=== PATIENT | female | born 1975 | race Caucasian/White ===

== ENCOUNTER → 2018-02-23 | Outpatient (CLI) | payer OTHER ==
--- NOTE | 2018-02-23 13:50 | XR ---
EXAMINATION TYPE: XR lumbar spine 2 or 3V DATE OF EXAM: 02/23/2018 CLINICAL HISTORY: Chronic low back pain TECHNIQUE: Frontal and lateral images of the lumbar spine are obtained. COMPARISON: None FINDINGS: There are 5 lumbar type vertebral bodies identified. The lumbar spine shows satisfactory alignment without evidence of acute fracture or dislocation. Vertebral body heights are within normal limits. There is mild to moderate disc space narrowing with mild anterior spurring L1-L2 level. Ther e is mild to moderate disc space narrowing L4-L5 level. There is mild disc space narrowing L5-S1 lev el. Multilevel facet arthropathy is seen most prominent in lower lumbar levels. The overlying soft ti ssue appears unremarkable. IMPRESSION: As above.
--- NOTE | 2018-02-23 13:51 | XR ---
EXAMINATION TYPE: XR shoulder complete LT DATE OF EXAM: 02/23/2018 CLINICAL HISTORY: Chronic shoulder pain. TECHNIQUE: Three views of the left shoulder are obtained. COMPARISON: None. FINDINGS: There is no acute fracture/dislocation evident in the left shoulder. There is mild to mode rate spurring at acromioclavicular joint. Glenohumeral joint is maintained. The visualized ribs are intact and unremarkable. IMPRESSION: There is mild to moderate degenerative changes left acromioclavicular joint.
== END | disposition home or self-care (01) ==
LOC: RADXRMAIN 13:09
PROVIDERS: ATTEND Family Medicine
DX: M48.07 Spinal stenosis, lumbosacral region (principal); M46.96 Unspecified inflammatory spondylopathy, lumbar region; G89.29 Other chronic pain; M25.512 Pain in left shoulder
CPT/HCPCS: 72100

== ENCOUNTER → 2018-10-25 | Outpatient (CLI) | payer OTHER ==
--- NOTE | 2018-10-29 13:56 | MM ---
Reason for exam: screening (asymptomatic). Baseline mammogram. History: Family history of breast cancer in maternal grandmother at age 62. Physical Findings: Nurse did not find any significant physical abnormalities on exam. MG Screening Mammo w CAD Bilateral CC and MLO view(s) were taken. No prior studies available for comparison. There are scattered fibroglandular densities. No discrete abnormality. 3 benign puctate calcifications medial left breast. These results were verbally communicated with the patient and result sheet given to the patient on 10/25/18. ASSESSMENT: Negative, BI-RAD 1 RECOMMENDATION: Routine screening mammogram of both breasts in 1 year.
== END | disposition home or self-care (01) ==
LOC: RADMAMWWP 07:13
PROVIDERS: ATTEND Family Medicine
DX: Z12.31 Encounter for screening mammogram for malignant neoplasm of breast (principal)
CPT/HCPCS: 77067

== ENCOUNTER → 2020-06-06 | Outpatient (CLI) | payer OTHER ==
--- NOTE | 2020-06-06 15:56 | US ---
EXAMINATION TYPE: US pelvis complete transvag DATE OF EXAM: 06/06/2020 COMPARISON: NONE CLINICAL HISTORY: N92.0 Excessive / frequent menstruation. Difficult exam due to patient body habitus TECHNIQUE: . Transabdominal sonographic images of the pelvis were acquired. Transvaginal sonographi c images were medically necessary to better assess the following anatomy: Uterus and ovaries Date of LMP: 2-3 weeks ago EXAM MEASUREMENTS: Uterus: 9.5 x 5.4 x 6.5 cm Endometrial Stripe: 0.6 cm Right Ovary: 2.4 x 1.7 x 1.0 cm Left Ovary: Not visualized 1. Uterus: Anteverted Heterogeneous 2. Endometrium: wnl 3. Right Ovary: wnl 4. Left Ovary: Not visualized 5. Bilateral Adnexa: wnl 6. Posterior cul-de-sac: wnl IMPRESSION: 1. Uterine myometrium heterogeneous which is nonspecific. No discrete fibroid change.
== END | disposition home or self-care (01) ==
LOC: RADUSWWP 15:16
PROVIDERS: ATTEND Family Medicine
DX: N92.0 Excessive and frequent menstruation with regular cycle (principal)
CPT/HCPCS: 76830; 76856

== ENCOUNTER 2021-06-25 08:37 | Day surgery (SDC) | payer OTHER ==
[2021-06-20 15:57] VITALS: BMI 45.1
[2021-06-25] MEDS ORDERED: LACTATED RINGERS 1,000 ML IV SCH (09:21)
[2021-06-25] MEDS ORDERED: LIDOCAINE 1% (10MG/ML) FOR IV START INTRADERMA PRN (09:21)
[2021-06-25 09:36] VITALS: RESP 16; TEMP 97
[2021-06-25] MEDS ORDERED: LIDOCAINE 1% INJ 10MG/ML (20 ML MDV) ONE (10:39)
[2021-06-25] MEDS ORDERED: PROPOFOL 10 MG/ML 20 ML VIAL IV ONE (10:39)
--- NOTE | 2021-06-25 11:09 | P.PCN ---
Date of Procedure: 06/25/21 Procedure(s) Performed: BRIEF HISTORY: Patient is a 46-year-old pleasant female scheduled for an elective colonoscopy as a part of screening for colon cancer and family history of colon cancer diagnosed in her mother at age 42. PROCEDURE PERFORMED: Colonoscopy. PREOPERATIVE DIAGNOSIS: Screening for colon cancer and family history of colon cancer. IV sedation per Anesthesia. PROCEDURE: After informed consent was obtained, the patient, was brought into the endoscopy unit. IV sedation was administered by Anesthesia under continuous monitoring. Digital rectal examination was normal. Initially the Olympus CF-160 flexible video colonoscope was then inserted in the rectum, gradually advanced into the cecum without any difficulty. Careful examination was performed as the scope was gradually being withdrawn. Ileocecal valve and the appendiceal orifice were visualized and appeared normal. Prep was e fair. Mucosa of the cecum, ascending colon, transverse colon, descending colon, sigmoid colon, and rectum appeared normal. Retroflexion was performed in the rectum and no lesions were seen. The patient tolerated the procedure well. IMPRESSION: Normal-appearing colon from rectum to cecum with no evidence of colitis or colorectal neoplasia . RECOMMENDATIONS: Findings of this examination were discussed with the patient as well as her family. She was advised to have a repeat screening colonoscopy every 5 years because of the family history of colon cancer.
[2021-06-25 11:42] VITALS: BP 127/77; PULSE 87
== END 2021-06-25 12:20 | disposition home or self-care (01) ==
LOC: ORWHC2ENDO 08:37
PROVIDERS: ATTEND Internal Medicine Gastroenterology
DX: Z12.11 Encounter for screening for malignant neoplasm of colon (principal); Z80.0 Family history of malignant neoplasm of digestive organs; I10 Essential (primary) hypertension; K21.9 Gastro-esophageal reflux disease without esophagitis; E78.5 Hyperlipidemia, unspecified; E07.9 Disorder of thyroid, unspecified; F32.9 Major depressive disorder, single episode, unspecified; F41.9 Anxiety disorder, unspecified; F41.0 Panic disorder [episodic paroxysmal anxiety]; Z87.891 Personal history of nicotine dependence; Z79.1 Long term (current) use of non-steroidal anti-inflammatories (NSAID); Z79.890 Hormone replacement therapy; Z79.899 Other long term (current) drug therapy
CPT/HCPCS: 81025; G0105; J2001; J2704; 45378

== ENCOUNTER → 2022-01-19 | Outpatient (CLI) | payer OTHER ==
[2022-01-19 14:07] VITALS: BP 153/89; PULSE 114; RESP 16; TEMP 98.4
[2022-01-19 23:15] LABS: HCT 41.6 % (37.2-46.3); HGB 12.7 g/dL (12.0-15.0); MCHC 30.5 g/dL (32.0-37.0); MCV 82.1 fL (80.0-97.0); Mean Platelet Volume 10.8 fL (9.5-12.2); NRBC Per 100 WBC 0 /100 WBCS (0.0-0.0); Platelet Count 443 X 10*3/uL (140-440); RBC 5.07 X 10*6/uL (4.10-5.20); RDW 16.6 % (11.5-14.5); WBC 5.85 X 10*3/uL (4.50-10.00)
[2022-01-19 23:44] LABS: ALT 49 U/L (8-44); AST 32 U/L (13-35); African American GFR (CKD) 105.2 (60.0-200.0); Albumin 4.8 g/dL (3.8-4.9); Albumin/Globulin Ratio 1.79 (1.60-3.17); Alkaline Phosphatase 135 U/L (41-126); BUN/Creat Ratio 33.98 Ratio (12.00-20.00); Blood Urea Nitrogen 26.3 mg/dL (9.0-27.0); Carbon Dioxide 24.8 mmol/L (20.0-27.5); Chloride 98 mmol/L (96-109); Globulin 2.7 g/dL (1.6-3.3); Glucose 105 mg/dL (70-110); Non-African American GFR(CKD) 90.7 (60.0-200.0); Potassium 4.6 mmol/L (3.5-5.5); Sodium 138 mmol/L (135-145); Total Bilirubin <0.15 mg/dL (0.30-1.20); Total Protein 7.4 g/dL (6.2-8.2)
== END | disposition home or self-care (01) ==
LOC: BARWHC3 13:41
PROVIDERS: ATTEND Surgery
DX: E66.01 Morbid (severe) obesity due to excess calories (principal); E55.9 Vitamin D deficiency, unspecified
CPT/HCPCS: 84425; 80053; 82607; 82746; 85027; 82306; 83036; 93005; G0463; 99203

== ENCOUNTER → 2022-02-09 | Day surgery (SDC) | payer OTHER ==
[~2022-02-09] MED LIST: LACTATED RINGERS 1,000 ML BAG IV ONE; LIDOCAINE 2% INJ 20 MG/ML (2 ML VIAL) ONE; PROPOFOL 10 MG/ML 20 ML VIAL IV ONE
--- NOTE | 2022-02-09 15:08 | P.GSHP ---
History of Present Illness H&P Date: 02/09/22 Chief Complaint: GERD This is a 47-year-old female with of GERD. Patient presents today for EGD. Past Medical History Past Medical History: Diabetes Mellitus, Hypertension, Thyroid Disorder History of Any Multi-Drug Resistant Organisms: None Reported Past Surgical History: Section, Tonsillectomy Past Anesthesia/Blood Transfusion Reactions: No Reported Reaction Past Psychological History: ADD/ADHD, Depression, Panic Disorder Additional Psychological History / Comment(s): Hx. of panic attacks Smoking Status: Former smoker Past Alcohol Use History: None Reported Additional Past Alcohol Use History / Comment(s): Quit in 2002 Past Drug Use History: None Reported - Past Family History Mother Family Medical History: Cancer Additional Family Medical History / Comment(s): ovarian, uterine Father Family Medical History: CVA/TIA, Diabetes Mellitus, Hypertension Medications and Allergies Home Medications Medication Instructions Recorded Confirmed Type Levothyroxine Sodium [Synthroid] 125 mcg PO QAM 08/27/14 02/05/22 History buPROPion [Wellbutrin] 100 mg PO BID 08/27/14 02/05/22 History Chlorthalidone [Hygroton] 25 mg PO QAM 06/20/21 02/05/22 History Meloxicam 15 mg PO DAILY PRN 06/20/21 02/05/22 History Rosuvastatin Calcium [Crestor] 20 mg PO HS 06/20/21 02/05/22 History Sertraline [Zoloft] 50 mg PO QAM 06/20/21 02/05/22 History tiZANidine [Zanaflex] 4 mg PO Q8HR PRN 06/20/21 02/05/22 History Cholecalciferol [Vitamin D3 (25 100 mcg PO DAILY 02/05/22 02/05/22 History Mcg = 1000 Iu)] metFORMIN HCL 50 mg PO AC-SUPPER 02/05/22 02/05/22 History Allergies Allergy/AdvReac Type Severity Reaction Status Date / Time No Known Allergies Allergy Verified 02/05/22 11:55 Surgical - Exam - General well developed, well nourished, no distress - Eyes PERRL - ENT normal pinna - Neck no masses - Respiratory normal expansion - Cardiovascular Rhythm: regular - Abdomen Abdomen: soft, non tender Assessment and Plan Assessment: GERD. We'll perform EGD.
--- NOTE | 2022-02-09 15:10 | P.OP ---
Date of Procedure: 02/09/22 Preoperative Diagnosis: GERD Postoperative Diagnosis: Antral gastritis Sliding hiatal hernia Esophagitis Procedure(s) Performed: EGD Anesthesia: MAC Surgeon: Trevor Garcia Pathology: other (Antrum) Condition: stable Disposition: PACU Description of Procedure: Patient's placed on the endoscopy table in the lateral position where she received IV sedation. The gastroscope placed oropharynx passed in the esophagus and the stomach. Scope was then placed through the pylorus. The first and second portion of the duodenum appeared normal. Scope was then brought back the antrum this. Mildly inflamed. A biopsies performed. Scope was unretroflexed and remainder of the stomach appeared normal. GE junction was at 38 cm. The distal esophagus was mildly inflamed. There was a small sliding hiatal hernia. The distal esophagus biopsy. The proximal esophagus appeared normal. Scope withdrawn for patient.
== END ==
LOC: ORWHC2ENDO 08:40
PROVIDERS: ATTEND Surgery
DX: K21.9 Gastro-esophageal reflux disease without esophagitis (principal); E07.9 Disorder of thyroid, unspecified; E11.9 Type 2 diabetes mellitus without complications; I10 Essential (primary) hypertension; K21.00 Gastro-esophageal reflux disease with esophagitis, without bleeding; K29.70 Gastritis, unspecified, without bleeding; K44.9 Diaphragmatic hernia without obstruction or gangrene; Z82.49 Family history of ischemic heart disease and other diseases of the circulatory system; Z83.3 Family history of diabetes mellitus; Z87.891 Personal history of nicotine dependence; Z80.9 Family history of malignant neoplasm, unspecified; F90.9 Attention-deficit hyperactivity disorder, unspecified type
CPT/HCPCS: 43239; 81025; 88305; J2704; J2001

== ENCOUNTER → 2022-02-16 | Outpatient (CLI) | payer OTHER ==
[2022-02-16 14:23] VITALS: BP 122/81; PULSE 101; TEMP 98.1; BMI 44.8
--- NOTE | 2022-02-16 14:54 | P.HPBAR ---
Bariatric H&P - History & Physicial H&P Date: 02/16/22 History & Physicial: Visit/CC: PRE-SURGICAL VISIT Patient initial contact: Initial weight: 130.181 kg Initial weight in pounds: 287.00 Height: 5 ft 6.5 in Initial BMI: 45.6 Last weight: Current weight: 127.913 kg Current weight in pounds: 282.00 Current BMI: 44.8 [place] body weight (based on NIH guidelines): 60.101 kg Excess body weight loss: 3.2% The patient is a 47 year-old F who presents for Bariatric Assessment.patient rents today for presurgical consultation. She underwent recent EGD. She's had some mild gastritis. Her BMI is 45. Past Medical History Past Medical History: Diabetes Mellitus, Hypertension, Thyroid Disorder History of Any Multi-Drug Resistant Organisms: None Reported Past Surgical History: Section, Tonsillectomy Past Anesthesia/Blood Transfusion Reactions: No Reported Reaction Past Psychological History: ADD/ADHD, Depression, Panic Disorder Additional Psychological History / Comment(s): Hx. of panic attacks Smoking Status: Former smoker Past Alcohol Use History: None Reported Additional Past Alcohol Use History / Comment(s): Quit in 2002 Past Drug Use History: None Reported - Past Family History Mother Family Medical History: Cancer Additional Family Medical History / Comment(s): ovarian, uterine Father Family Medical History: CVA/TIA, Diabetes Mellitus, Hypertension Surgical - Exam Vital Signs Temp Pulse BP 98.1 F 101 H 122/81 02/16/22 14:17 02/16/22 14:17 02/16/22 14:17 - General well developed, well nourished, no distress - Eyes PERRL - ENT normal pinna, normal nares - Neck no masses - Respiratory normal expansion - Cardiovascular Rhythm: regular - Abdomen Abdomen: soft, non tender Bariatric Assessment & Plan Plan: morbid obesity. Patient is doing well. She will follow-up in 8 weeks. Bariatric Checklist Checklist: Plan: Checklist: EGD: 1. Hiatal hernia: 2. H. Pylori: HgbA1c: Vitamin D: Smoking: Former smoker Primary care physician referral: [facility] Psychiatry clearance: Cardiology clearance: Sleep study: Diet journal: VTE risk score: VTE risk level: Rehab needs at discharge:
== END | disposition home or self-care (01) ==
LOC: BARWHC3 13:56
PROVIDERS: ATTEND Surgery
DX: E66.01 Morbid (severe) obesity due to excess calories (principal); Z68.41 Body mass index [BMI] 40.0-44.9, adult
CPT/HCPCS: 99211

== ENCOUNTER → 2022-02-25 | Outpatient (CLI) | payer OTHER ==
--- NOTE | 2022-02-25 17:04 | CA ---
Transthoracic Echo Report Name: Martina Rothman Age: 47 Gender: F : 1975 Exam Date: 02/25/2022 11:42 Exam Location: [facility] Ht (in): 66 Wt (lb): 279 Ordering Physician: Jude Sierra DO Attending/Referring Phys: Digital Specialist Lauren Mendoza RDCS Procedure CPT: Indications: R06.00 Dyspnea Cardiac Hx: Technical Quality: Fair Contrast 1: Total Dose (mL): Contrast 2: Total Dose (mL): MEASUREMENTS (Male / Female) Normal Values 2D ECHO LV Diastolic Diameter PLAX 3.2 cm 4.2 - 5.9 / 3.9 - 5.3 cm LV Systolic Diameter PLAX 1.3 cm IVS Diastolic Thickness 1.3 cm 0.6 - 1.0 / 0.6 - 0.9 cm LVPW Diastolic Thickness 1.2 cm 0.6 - 1.0 / 0.6 - 0.9 cm LV Relative Wall Thickness 0.8 RV Internal Dim ED PLAX 3.9 cm LA Volume 50.4 cm??? 18 - 58 / 22 - 52 cm??? M-MODE Aortic Root Diameter MM 2.9 cm LA Systolic Diameter MM 4.2 cm LA Ao Ratio MM 1.5 AV Cusp Separation MM 1.9 cm DOPPLER LVOT Peak Velocity 98.3 cm/s LVOT Peak Gradient 3.9 mmHg MV Area PHT 3.4 cm??? Mitral E Point Velocity 56.5 cm/s Mitral A Point Velocity 77.1 cm/s Mitral E to A Ratio 0.7 MV Deceleration Time 222.9 ms MV E' Velocity 7.7 cm/s Mitral E to MV E' Ratio 7.3 TR Peak Velocity 312.3 cm/s TR Peak Gradient 39.0 mmHg Right Ventricular Systolic Press 44.0 mmHg FINDINGS Left Ventricle Right Ventricle Mild right ventricular dilatation. Mild pulmonary hypertension. Right Atrium Normal right atrial size. Left Atrium Normal left atrial size. No evidence for an atrial septal defect. Mitral Valve No mitral stenosis. Trace to mild mitral regurgitation. Aortic Valve No aortic valve stenosis or regurgitation. Trileaflet aortic valve. Tricuspid Valve Mild tricuspid regurgitation. Pulmonic Valve Trace pulmonic regurgitation. Pericardium No pericardial effusion. Aorta Aortic root and proximal ascending aorta not well visualized. CONCLUSIONS Normal LV systolic function Mild pulmonary hypertension Previewed by: Dr. Kin Urbina MD (Electronically Signed) Final Date: 25 Feb 2022 17:03
== END | disposition home or self-care (01) ==
LOC: RADECHMAIN 11:38
PROVIDERS: ATTEND Family Medicine
DX: I10 Essential (primary) hypertension (principal); R06.00 Dyspnea, unspecified
CPT/HCPCS: 93306

== ENCOUNTER → 2022-05-05 | Outpatient (CLI) | payer OTHER ==
--- NOTE | 2022-05-05 13:33 | CT ---
EXAMINATION TYPE: CT chest wo con CT DLP: 282 mGycm, Automated exposure control for dose reduction was used. DATE OF EXAM: 05/05/2022 12:54 PM COMPARISON: Chest radiograph 04/14/2022. CLINICAL INDICATION:Female, 47 years old with history of R06.02 SHORTNESS OF BREATH; TECHNIQUE: Multiple thin axial images were obtained through the chest at selected intervals. Prone and supine in spiratory along with supine expiratory images were submitted for review. Please note that due to inte rval acquisition images as defined by high-resolution CT protocol the entire lung parenchyma is not e valuated, therefore small nodular densities may not be visualized. Evaluation of vascular structures , viscera and lymphatics is limited due to lack of intravenous contrast administration. One or more C T dose reduction strategies were utilized during this examination. FINDINGS: LUNGS: There is no evidence of interstitial thickening, significant groundglass opacity, honeycombing or architectural distortion in the lungs. No bronchiectasis. No significant expiratory air trapping. No acute area of infiltrative or consolidative change. No emphysematous changes noted. LARGE AIRWAYS: Central airways are patent. No dynamic airway collapse on expiratory imaging. PLEURA: No pleural effusion or thickening. HEART AND PERICARDIUM: Heart is normal in size. There is no pericardial effusion. MEDIASTINUM AND ERAN: No mediastinal or hilar lymphadenopathy or soft tissue mass. VESSELS: The thoracic aorta is normal in course and caliber. CHEST WALL AND DIAPHRAGM: Normal. LOWER NECK: Normal. UPPER ABDOMEN: Unremarkable. MUSCULOSKELETAL: No acute fracture. IMPRESSION: Unremarkable high resolution CT of the chest. No evidence for interstitial lung disease.
--- NOTE | 2022-05-05 15:05 | NM ---
EXAMINATION TYPE: NM pul vent and perfuse DATE OF EXAM: 05/05/2022 COMPARISON: NONE HISTORY: Eliceo of breath TECHNIQUE: Utilizing inhalation of 38.2 mCi Tc 99m DTPA aerosol and intravenous injection of 5.1 mCi of Tc 99m MAA, ventilation and perfusion images are acquired post injection in multiple projections. FINDINGS: Normal radiotracer distribution is noted in the lungs. There is no evidence of mismatched defects. IMPRESSION: Negative for pulmonary embolism.
== END | disposition home or self-care (01) ==
LOC: RADCTMAIN 11:59
PROVIDERS: ATTEND Internal Medicine Critical Care Medicine
DX: R06.02 Shortness of breath (principal)
CPT/HCPCS: 71250; 78582; A9540; A9567

== ENCOUNTER → 2022-05-11 | Outpatient (CLI) | payer OTHER ==
[2022-05-11 14:19] VITALS: BP 115/73; PULSE 99; TEMP 98.5; BMI 42.9
--- NOTE | 2022-05-12 16:10 | P.HPBAR ---
Bariatric H&P - History & Physicial H&P Date: 05/11/22 History & Physicial: Visit/CC: EGD f/u Patient initial contact: Initial weight: 130.181 kg Initial weight in pounds: 287.00 Height: 5 ft 6.5 in Initial BMI: 45.6 Last weight: Current weight: 122.47 kg Current weight in pounds: 270.00 Current BMI: 42.9 [place] body weight (based on NIH guidelines): 60.101 kg Excess body weight loss: 11.0% The patient is a 47 year-old F who presents for Bariatric Assessment. Patient presents today for bariatric follow-up. Her current weight is 270 pounds. Her previous weight was 282 pounds. She is presurgical. BMI is 43. Past Medical History Past Medical History: Diabetes Mellitus, Hypertension, Thyroid Disorder Additional Past Medical History / Comment(s): recent diagnosis pulmonary hypertension History of Any Multi-Drug Resistant Organisms: None Reported Past Surgical History: Section, Tonsillectomy Past Anesthesia/Blood Transfusion Reactions: No Reported Reaction Past Psychological History: ADD/ADHD, Depression, Panic Disorder Additional Psychological History / Comment(s): Hx. of panic attacks Smoking Status: Former smoker Past Alcohol Use History: None Reported Additional Past Alcohol Use History / Comment(s): Quit in 2002 Past Drug Use History: None Reported - Past Family History Mother Family Medical History: Cancer Additional Family Medical History / Comment(s): ovarian, uterine Father Family Medical History: CVA/TIA, Diabetes Mellitus, Hypertension Surgical - Exam Vital Signs Temp Pulse BP 98.5 F 99 115/73 05/11/22 14:14 05/11/22 14:14 05/11/22 14:14 - General well developed, well nourished, no distress - Eyes PERRL, normal ocular movement - ENT normal pinna - Neck no masses - Respiratory normal expansion - Cardiovascular Rhythm: regular - Abdomen Abdomen: soft, non tender Bariatric Assessment & Plan Plan: Morbid obesity. BMI 43. Patient be scheduled for sleeve gastrectomy once her insurance authorization requirements have been met. Bariatric Checklist Checklist: Plan: Checklist: EGD: 1. Hiatal hernia: 2. H. Pylori: HgbA1c: Vitamin D: Smoking: Former smoker Primary care physician referral: [facility] Psychiatry clearance: Cardiology clearance: Sleep study: Diet journal: VTE risk score: VTE risk level: Rehab needs at discharge:
== END | disposition home or self-care (01) ==
LOC: BARWHC3 13:40
PROVIDERS: ATTEND Surgery
DX: E66.01 Morbid (severe) obesity due to excess calories (principal); E11.9 Type 2 diabetes mellitus without complications; I10 Essential (primary) hypertension; F32.A Depression, unspecified; F41.0 Panic disorder [episodic paroxysmal anxiety]; Z87.891 Personal history of nicotine dependence; Z68.41 Body mass index [BMI] 40.0-44.9, adult; Z79.84 Long term (current) use of oral hypoglycemic drugs; Z79.899 Other long term (current) drug therapy
CPT/HCPCS: 99211

== ENCOUNTER → 2022-05-18 | Outpatient (CLI) | payer OTHER ==
--- NOTE | 2022-05-18 10:22 | XR ---
EXAMINATION TYPE: XR lumbar spine 2 or 3V DATE OF EXAM: 05/18/2022 CLINICAL HISTORY: Low back pain. TECHNIQUE: Frontal and lateral images of the lumbar spine are obtained. COMPARISON: X-ray lumbar spine February 23, 2018 FINDINGS: There are 5 lumbar type vertebral bodies redemonstrated. Alignment is more straightened. S light grade 1 anterolisthesis of L5 on current study. Vertebral body heights remain within normal dominguez its. Mild/moderate disc space narrowing and anterior spurring L1-L2 level redemonstrated. Moderate di sc space narrowing at L4-L5 level more prominent from prior. The overlying soft tissue appears unrem arkable. IMPRESSION: As above.
== END | disposition home or self-care (01) ==
LOC: RADXRMAIN 09:38
PROVIDERS: ATTEND Nurse Practitioner Family
DX: M54.50 Low back pain, unspecified (principal)
CPT/HCPCS: 72100

== ENCOUNTER → 2022-06-08 | Outpatient (CLI) | payer OTHER ==
[2022-06-08 12:42] VITALS: BMI 44.0
== END | disposition home or self-care (01) ==
LOC: BARWHC3 08:15
PROVIDERS: ATTEND Surgery
DX: E66.01 Morbid (severe) obesity due to excess calories (principal); Z71.3 Dietary counseling and surveillance
CPT/HCPCS: 97804

== ENCOUNTER 2022-08-26 15:40 | Emergency (ER) | payer OTHER ==
[2022-08-26 15:44] VITALS: BP 137/74; PULSE 140; RESP 20; TEMP 102.8
--- NOTE | 2022-08-26 16:05 | XR ---
EXAMINATION TYPE: XR chest 2V DATE OF EXAM: 08/26/2022 COMPARISON: NONE HISTORY: Chest pain TECHNIQUE: Frontal and lateral views of the chest are obtained. FINDINGS: There is no focal air space opacity. No evidence for pneumothorax. No pleural effusion. The cardiac silhouette size is within normal limits. The osseous structures are grossly intact. IMPRESSION: 1. No acute cardiopulmonary process.
[2022-08-26] MEDS ORDERED: IBUPROFEN 800 MG TAB PO STA (16:49)
--- NOTE | 2022-08-26 16:52 | ED ---
General Adult HPI - General Chief complaint: Upper Respiratory Infection Stated complaint: Fever,chest congestion Time Seen by Provider: 08/26/22 16:35 Source: patient, RN notes reviewed, old records reviewed Mode of arrival: ambulatory Limitations: no limitations - History of Present Illness Initial comments: Patient is a 47-year-old female who presents emergency Department complaining of upper respiratory symptoms, fevers. Symptoms have been ongoing for the last 1-2 days. Patient points of cough, fevers, body aches. Endorses rhinorrhea. Denies nausea or vomiting. Denies diarrhea. States family members at home has similar complaints. She does have a history of diabetes, hypertension, thyroid disorder. Denies any chest pain, shortness breath. Denies any sore throat. States she did receive the initial Covid vaccines but no boosters. She has no other acute complaints at this time. Presents over concern for upper respiratory illness. - Related Data Home Medications Medication Instructions Recorded Confirmed Levothyroxine Sodium [Synthroid] 125 mcg PO QAM 08/27/14 05/11/22 buPROPion [Wellbutrin] 100 mg PO BID 08/27/14 05/11/22 Chlorthalidone [Hygroton] 25 mg PO QAM 06/20/21 05/11/22 Meloxicam 15 mg PO DAILY PRN 06/20/21 05/11/22 Rosuvastatin Calcium [Crestor] 20 mg PO HS 06/20/21 05/11/22 Sertraline [Zoloft] 50 mg PO QAM 06/20/21 05/11/22 tiZANidine [Zanaflex] 4 mg PO Q8HR PRN 06/20/21 05/11/22 Cholecalciferol [Vitamin D3 (25 100 mcg PO DAILY 02/05/22 05/11/22 Mcg = 1000 Iu)] metFORMIN HCL 50 mg PO AC-SUPPER 02/05/22 05/11/22 Multivitamins, Thera [Multivitamin 1 tab PO DAILY 02/16/22 05/11/22 (formulary)] Vitamin B Complex 1 each PO DAILY 02/16/22 05/11/22 Allergies Allergy/AdvReac Type Severity Reaction Status Date / Time No Known Allergies Allergy Verified 02/05/22 11:55 Review of Systems ROS Statement: Those systems with pertinent positive or pertinent negative responses have been documented in the HPI. Review of Systems: CONST: Denies fever EYES: Denies blurry vision ENT: Endorses nasal congestion C/V: Denies Chest pain RESP: Endorses cough GI: Denies abdominal pain : Denies dysuria SKIN: Denies rash. MSK: Denies joint pain. NEURO: Denies headache ROS Other: All systems not noted in ROS Statement are negative. Past Medical History Past Medical History: Diabetes Mellitus, Hypertension, Thyroid Disorder Additional Past Medical History / Comment(s): recent diagnosis pulmonary hypertension History of Any Multi-Drug Resistant Organisms: None Reported Past Surgical History: Section, Tonsillectomy Past Anesthesia/Blood Transfusion Reactions: No Reported Reaction Past Psychological History: ADD/ADHD, Depression, Panic Disorder Smoking Status: Former smoker Past Alcohol Use History: None Reported Past Drug Use History: None Reported - Past Family History Mother Family Medical History: Cancer Additional Family Medical History / Comment(s): ovarian, uterine Father Family Medical History: CVA/TIA, Diabetes Mellitus, Hypertension General Exam - General Exam Comments Initial Comments: General: Appears in no acute distress. Patient is febrile. HEAD: Normal with no signs of head trauma. EYES: EOMI ENT: Hearing grossly intact, normal oropharynx. RESPIRATORY: Clear breath sounds bilaterally. No wheezes, rales, or rhonchi. No hypoxia. No respiratory distress. C/V: Regular rate and rhythm on palpation. Heartrate approximately 100 bpm palpated. S1 and S2 auscultated, no edema, peripheral pulses 2+ and intact throughout ABD: Abd is soft, nontender, nondistended EXT: Normal range of motion, no obvious deformity SKIN: No rashes or lesions observed on exposed skin. NEURO: Alert and oriented 4. Limitations: no limitations Course Vital Signs 08/26/22 15:42 Temperature 102.8 F H Pulse Rate 140 H Respiratory 20 Rate Blood Pressure 137/74 O2 Sat by Pulse 97 Oximetry Medical Decision Making - Medical Decision Making Based on the patient's presentation and physical exam, I'm concerned for upper respiratory illness and febrile illness at this time. Chest x-ray as well as viral swabs were obtained. Chest x-ray as interpreted by myself showed no acute cardiopulmonary process, and viral swabs are positive for Covid but negative for flu. I evaluated the patient when she was placed in a room. Vital signs remarkable for febrile illness as well as sinus tachycardia. EKG was obtained while the patient was in triage. It did reveal sinus tachycardia of 130 bpm. At bedside when I evaluated the patient she did have a palpable rate of approximately 100. Likely secondary to her febrile illness. Nursing staff did not update the patient's vitals. I did discuss with the patient the findings of her workup. She did consent to vaccinated therapy. She also also given a dose of Motrin for her fevers. As stated above, palpable heart rate 90 evaluated the patient was approximately 100 bpm. It is improved from what was in triage. Likely secondary to the infection and the fever. I instructed the patient to hold her statin therapy is contra indicated will taking paxlovid. She was in agreement this plan. Strict return precautions were discussed. Recommended she obtain a pulse oximeter to monitor oxygenation levels. Recommended isolation until at least Wednesday and 24 hours fever free. She was in agreement this plan. I will provide the patient with a prescription for Paxlovid. I instructed the patient to follow up with their PCP in the next 1-3 days. I explained that the patient should return to the emergency department if they experience any worsening symptoms. Strict return precautions were discussed with the patient. The patient expressed understanding of these instructions. I answered all questions that the patient had. The patient was discharged home in good c ondition with their prescriptions and follow up information. - Lab Data Lab Results 08/26/22 08/26/22 Range/Units 15:49 15:49 Coronavirus (PCR) Detected A (Not Detectd) Influenza Type A RNA Not Detected (Not Detectd) Influenza Type B (PCR) Not Detected (Not Detectd) - EKG Data -: EKG Interpreted by Me EKG Comments: 12-lead Electrocardiogram Interpretation Note EKG was reviewed and interpreted by myself. 12-lead ECG performed at 1548 is interpreted by me as revealing sinus tachycardia at a rate of 130 beats per minute. [place] is normal. [place] interval is 140 ms, QRS duration 92 ms, QTc is 387 ms. There were no ST or T wave abnormalities to suggest myocardial ischemia or injury. R wave progression across the precordium was satisfactory. By my interpretation this EKG is non-diagnostic for acute ischemia. Disposition Clinical Impression: COVID-19 Disposition: HOME SELF-CARE Condition: Fair Instructions (If sedation given, give patient instructions): Upper Respiratory Infection (ED), COVID-19 (Coronavirus Disease 2019) (ED) Additional Instructions: Isolate until day 5 of symptoms. Remain isolated until 24 hours symptom free after that. Hold your rosuvastatin while taking paxlovid. Obtain a pulse oximeter for monitoring oxygen levels. Normal is greater than 95%. Is patient prescribed a controlled substance at d/c from ED?: No Referrals: Jude Sierra DO [Primary Care Provider] - 1-2 days Time of Disposition: 16:50
== END 2022-08-26 17:17 | disposition home or self-care (01) ==
LOC: EC 15:40
DX: U07.1 COVID-19 (principal); E11.9 Type 2 diabetes mellitus without complications; I10 Essential (primary) hypertension; E07.9 Disorder of thyroid, unspecified; Z87.891 Personal history of nicotine dependence; F32.A Depression, unspecified; F41.0 Panic disorder [episodic paroxysmal anxiety]; F90.9 Attention-deficit hyperactivity disorder, unspecified type; J06.9 Acute upper respiratory infection, unspecified; Z79.890 Hormone replacement therapy; Z79.83 Long term (current) use of bisphosphonates; Z79.84 Long term (current) use of oral hypoglycemic drugs; Z79.899 Other long term (current) drug therapy
CPT/HCPCS: 71046; 87502; 87635; 93005; 99284

== ENCOUNTER → 2022-11-13 | Outpatient (CLI) | payer OTHER ==
[2022-11-13 18:47] LABS: Basophils # (A) 0.07 X 10*3/uL (0.00-0.10); Eosinophils # (A) 0.15 X 10*3/uL (0.04-0.35); Eosinophils % (A) 2.2 %; HCT 47.8 % (37.2-46.3); HGB 15.3 g/dL (12.0-15.0); Immature Grans, Automated 0.1 %; MCV 93.7 fL (80.0-97.0); Monocytes % (A) 5.8 %; NRBC Per 100 WBC 0 /100 WBCS (0.0-0.0); Neutrophils # (A) 2.73 X 10*3/uL (1.80-7.70); Neutrophils % (A) 39.9 %; Platelet Count 330 X 10*3/uL (140-440); RDW 13.2 % (11.5-14.5); WBC 6.86 X 10*3/uL (4.50-10.00)
[2022-11-13 19:10] LABS: Albumin/Globulin Ratio 1.92 (1.60-3.17); BUN/Creat Ratio 17.56 Ratio (12.00-20.00); Blood Urea Nitrogen 15.8 mg/dL (9.0-27.0); Calcium 10.3 mg/dL (8.7-10.3); Globulin 2.6 g/dL (1.6-3.3); Non-African American GFR(CKD) 75.1 (60.0-200.0); Potassium 4.3 mmol/L (3.5-5.5); Total Bilirubin 0.4 mg/dL (0.30-1.20); Total Protein 7.6 g/dL (6.2-8.2)
== END | disposition home or self-care (01) ==
LOC: LABPAT 09:49
PROVIDERS: ATTEND Surgery
DX: Z01.812 Encounter for preprocedural laboratory examination (principal)
CPT/HCPCS: 80053; 85025

== ENCOUNTER 2022-11-16 06:25 | Inpatient (IN) | payer OTHER ==
[~2022-11-16 06:25] MED LIST changes: +DEXAMETHASONE SOD PHOSPHATE 4 MG/ML 1 ML VIAL IV ONE; +ENOXAPARIN 40 MG/0.4 ML SYRINGE SQ PRN; +HYDROmorphone 0.5 MG/0.5 ML SYRINGE IVP PRN; -LACTATED RINGERS 1,000 ML BAG IV ONE; +LIDOCAINE 1% (10MG/ML) FOR IV START INTRADERMA PRN; -LIDOCAINE 2% INJ 20 MG/ML (2 ML VIAL) ONE; +MIDAZOLAM 2 MG/2 ML VIAL IV PRN; +ONDANSETRON 4 MG/2 ML VIAL IVP ONE; -PROPOFOL 10 MG/ML 20 ML VIAL IV ONE; +ceFAZolin 3 GM in SODIUM CHLORIDE 0.9% 100 ML IVPB PRN
[2022-11-16 07:23] LABS: Glucose,Whole Blood 112 mg/dL (70-110)
[2022-11-16] MEDS: LACTATED RINGERS 1,000 ML IV SCH (07:24)
[2022-11-16] MEDS ORDERED: KETAMINE 10 MG/ML 20 ML VIAL ONE (07:56)
[2022-11-16] MEDS ORDERED: LIDOCAINE 2% INJ 20 MG/ML (2 ML VIAL) ONE (07:56)
[2022-11-16] MEDS ORDERED: LIDOCAINE 4% LTA KIT (4 ML) TOPICAL ONE (07:56)
[2022-11-16] MEDS ORDERED: MIDAZOLAM 2 MG/2 ML VIAL ONE (07:56)
[2022-11-16] MEDS ORDERED: SUCCINYLCHOLINE CHLORIDE 200 MG/10 ML VIAL IV ONE (07:56)
[2022-11-16] MEDS ORDERED: NEOSTIGMINE 1 MG/ML 10 ML VIAL ONE (07:56)
[2022-11-16] MEDS ORDERED: fentaNYL (PF) 50 MCG/ML 2 ML AMP ONE (07:56)
[2022-11-16] MEDS ORDERED: ePHEDrine 50 MG/ML 1 ML VIAL ONE (07:56)
[2022-11-16] MEDS ORDERED: PHENYLEPHRINE-0.9% NACL SYG 1,000 MCG/10 ML SYRINGE ONE (07:56)
[2022-11-16] MEDS ORDERED: PROPOFOL 10 MG/ML 20 ML VIAL IV ONE (07:56)
[2022-11-16] MEDS ORDERED: GLYCOPYRROLATE 0.2 MG/ML 2 ML VIAL ONE (07:56)
[2022-11-16] MEDS ORDERED: ROCURONIUM 10 MG/ML (5 ML VIAL) IV ONE (07:56)
[2022-11-16] MEDS ORDERED: KETOROLAC 15 MG/ML 1 ML VIAL ONE (07:56)
[2022-11-16] MEDS ORDERED: BUPIVACAIN-EPI 0.25%-1:200,000 30 ML VIAL SQ ONE (08:19)
[2022-11-16] MEDS ORDERED: LACTATED RINGERS 1,000 ML IV ONE (09:09)
--- NOTE | 2022-11-16 09:32 | P.GSHP ---
History of Present Illness H&P Date: 11/16/22 Chief Complaint: RBC Is a 47-year-old female with history of morbid obesity. Patient presents today for sleeve gastrectomy. Patient aware the risks of surgery including injury stomach, liver and spleen, small bowel. He is also aware the risk of conversion to the open procedure. Past Medical History Past Medical History: Diabetes Mellitus, GERD/Reflux, Hyperlipidemia, Hypertension, Thyroid Disorder Additional Past Medical History / Comment(s): Pulmonary hypertension. No problems since 2019 with acid reflux. History of Any Multi-Drug Resistant Organisms: None Reported Past Surgical History: Section, Tonsillectomy Additional Past Surgical History / Comment(s): Section X2. Past Anesthesia/Blood Transfusion Reactions: No Reported Reaction Past Psychological History: ADD/ADHD, Depression, Panic Disorder Additional Psychological History / Comment(s): Hx of panic attacks. Smoking Status: Former smoker Past Alcohol Use History: None Reported Additional Past Alcohol Use History / Comment(s): Quit smoking in 2002. Past Drug Use History: None Reported - Past Family History Mother Family Medical History: Cancer Additional Family Medical History / Comment(s): Ovarian, uterine cancer. Father Family Medical History: CVA/TIA, Diabetes Mellitus, Hypertension Medications and Allergies Home Medications Medication Instructions Recorded Confirmed Type Levothyroxine Sodium [Synthroid] 125 mcg PO QAM 08/27/14 11/11/22 History buPROPion [Wellbutrin] 100 mg PO BID 08/27/14 11/11/22 History Chlorthalidone [Hygroton] 25 mg PO QAM 06/20/21 11/16/22 History Meloxicam 15 mg PO DAILY PRN 06/20/21 11/11/22 History Rosuvastatin Calcium [Crestor] 20 mg PO HS 06/20/21 11/16/22 History Sertraline [Zoloft] 50 mg PO QAM 06/20/21 11/11/22 History tiZANidine [Zanaflex] 4 mg PO Q8HR PRN 06/20/21 11/16/22 History Cholecalciferol [Vitamin D3 (25 100 mcg PO DAILY 02/05/22 11/11/22 History Mcg = 1000 Iu)] metFORMIN HCL 500 mg PO W/SUPPER 02/05/22 11/16/22 History Multivitamins, Thera [Multivitamin 1 tab PO DAILY 02/16/22 11/11/22 History (formulary)] Vitamin B Complex 1 each PO DAILY 02/16/22 11/11/22 History Omeprazole 40 mg PO PRN 11/16/22 History Allergies Allergy/AdvReac Type Severity Reaction Status Date / Time No Known Allergies Allergy Verified 11/16/22 06:47 Surgical - Exam Vital Signs Temp Pulse Resp BP Pulse Ox 97.0 F L 96 16 104/69 94 L 11/16/22 06:59 11/16/22 06:59 11/16/22 06:59 11/16/22 06:59 11/16/22 06:59 - General BMI 45 well developed, well nourished, no distress - Eyes PERRL - ENT normal pinna, normal nares - Neck no masses - Respiratory normal expansion - Cardiovascular Rhythm: regular - Abdomen Abdomen: soft, non tender Results - Labs Abnormal Lab Results - Last 24 Hours (Table) 11/16/22 Range/Units 07:20 POC Glucose (mg/dL) 112 H (70-110) mg/dL Assessment and Plan Assessment: Morbid obesity, BMI 45. Patient will undergo sleeve gastrectomy.
[2022-11-16] MEDS ORDERED: NALOXONE 0.4 MG/ML 1 ML VIAL IV PRN (09:37)
[2022-11-16] MEDS ORDERED: HYDROcodone/APAP 15 ML SOLUTION PO PRN ×2 (09:37)
[2022-11-16] MEDS ORDERED: HYOSCYAMINE ORAL DROPS 1.875 MG/15 ML BOTTLE PO PRN (09:37)
[2022-11-16] MEDS ORDERED: SIMETHICONE 40 MG/0.6 ML DROPS 2,000 MG/30 ML BOTTLE PO PRN (09:37)
[2022-11-16] MEDS ORDERED: ONDANSETRON 4 MG/2 ML VIAL IVP PRN (09:37)
[2022-11-16] MEDS ORDERED: diphenhydrAMINE 50 MG/ML 1 ML VIAL IVP PRN (09:37)
--- NOTE | 2022-11-16 09:37 | P.OP ---
Date of Procedure: 11/16/22 Preoperative Diagnosis: Morbid obesity, BMI 45 Postoperative Diagnosis: Morbid obesity, BMI 45 to Hiatal hernia Procedure(s) Performed: Laparoscopic sleeve gastrectomy Laparoscopic hiatal hernia repair Anesthesia: BENNIE Surgeon: Trevor Garcia Estimated Blood Loss (ml): 5 Pathology: other (Stomach) Condition: stable Disposition: PACU Description of Procedure: The patient was placed on the operating room table in the supine position. She received general anesthesia and then was placed in dorsal lithotomy position. Her abdomen was prepped and draped in sterile fashion. The skin incision sites were anesthetized 1% local Xylocaine. And then the skin was incised with an 11 blade in the left lateral position. Using a blade less trocar under direct visualization the peritoneal cavity was entered. The abdomen was insufflated and then a 5 mm laparoscope was placed into the peritoneal cavity. A 5 mm trocar was placed in the right epigastric, and right lateral position. A 15 mm trocar was placed in the supra-umbilical position and another 5 mm trocar was placed in the left lateral position. The left lateral lobe of the liver was retracted. The stomach was visualized. The greater curvature of the stomach was then dissected using the Harmonic scissors. The dissection occurred approximately 5 cm from the pylorus to the level of the left liborio. There was a hiatal hernia seen. The liborio was dissected free with the Harmonic scissors. And then the liborio underwent retrocrural repair using 2-0 Ethibond suture. n. At this point a 40-Slovenian bougie dilator was placed the oropharynx and passed into the esophagus and into the stomach by the [employer]. The sleeve gastrectomy was performed by using the powered echelon stapler with a seam guard buttress material. Sequential firings of the stapler were performed. The gastric remnant was then brought out through the 15 mm trocar site. The dilator was withdrawn. And a orogastric tube was replaced into the stomach. The stomach was insufflated with 200 mL of methylene blue normal saline. There was no evidence of extravasation. The abdomen was irrigated there is no bleeding seen. The Jean Marie-Brannon device was used to close the 15 mm trocar with 0 Vicryl. Skin was closed with interrupted 3-0 Monocryl sutures once the trochars withdrawn. Dermabond dressing was applied. Patient was sent to recovery in stable condition.
[2022-11-16] MEDS ORDERED: ONDANSETRON 4 MG/2 ML VIAL IVP ONE (09:41)
[2022-11-16] MEDS ORDERED: HYDROmorphone 0.5 MG/0.5 ML SYRINGE IVP ONE ×3 (09:43→10:53)
[2022-11-16] MEDS: ALBUTEROL NEBULIZED 2.5 MG/3 ML INHALATION SCH ×3 (11:59→20:18)
[2022-11-16 12:08] LABS: Glucose,Whole Blood 125 mg/dL (70-110)
[2022-11-16] MEDS: KETOROLAC 15 MG/ML 1 ML VIAL IVP SCH ×3 (12:46→23:24)
[2022-11-16] MEDS: 0.9% NACL WITH KCL 20 MEQ/L 1,000 ML IV SCH ×3 (13:04→23:25)
[2022-11-16] MEDS: HYDROmorphone 0.5 MG/0.5 ML SYRINGE IVP PRN ×2 (14:55→20:44)
--- NOTE | 2022-11-16 16:41 | P.CONS ---
History of Present Illness - History of Present Illness Patient is admitted for laparoscopic had a hernia repair patient is burping di dn't pass gas yet patient is otherwise clinically doing well does have multiple medical problems including hypertension just esophageal reflux disease. Patient is bit tachycardic. REVIEW OF SYSTEMS: CONSTITUTIONAL: No fever, no malaise, no fatigue. HEENT: No recent visual problems or hearing problems. Denied any sore throat. CARDIOVASCULAR: No chest pain, orthopnea, PND, no palpitations, no syncope. PULMONARY: No shortness of breath, no cough, no hemoptysis. GASTROINTESTINAL: No diarrhea, no nausea, no vomiting, no abdominal pain. NEUROLOGICAL: No headaches, no weakness, no numbness. HEMATOLOGICAL: Denies any bleeding or petechiae. GENITOURINARY: Denies any burning micturition, frequency, or urgency. MUSCULOSKELETAL/RHEUMATOLOGICAL: Denies any joint pain, swelling, or any muscle pain. ENDOCRINE: Denies any polyuria or polydipsia. The rest of the 14-point review of systems is negative. PHYSICAL EXAMINATION: GENERAL: The patient is alert and oriented x3, not in any acute distress. Well developed, well nourished. HEENT: Pupils are round and equally reacting to light. EOMI. No scleral icterus. No conjunctival pallor. Normocephalic, atraumatic. No pharyngeal erythema. No thyromegaly. CARDIOVASCULAR: S1 and S2 present. No murmurs, rubs, or gallops. PULMONARY: Chest is clear to auscultation, no wheezing or crackles. ABDOMEN: Soft, nontender, nondistended, normoactive bowel sounds. No palpable organomegaly. Surgical site areas appear to be clean patient has an abdominal binder MUSCULOSKELETAL: No joint swelling or deformity. EXTREMITIES: No cyanosis, clubbing, or pedal edema. NEUROLOGICAL: Gross neurological examination did not reveal any focal deficits. SKIN: No rashes. Assessment and plan -Type 2 diabetes mellitus hold off on metformin patient was started on sliding scale insulin -Gastroesophageal reflux disease for which patient is on IV Protonix which can be continued. Patient is also on Toradol at this time along with simethicone. -Hyperlipidemia: Patient will resume on statins -Hypothyroidism patient was resumed on levothyroxine -Depression patient was resumed on bupropion DVT prophylaxis: As per primary service Past Medical History Past Medical History: Diabetes Mellitus, GERD/Reflux, Hyperlipidemia, Hypertension, Thyroid Disorder Additional Past Medical History / Comment(s): Pulmonary hypertension. No problems since 2019 with acid reflux. History of Any Multi-Drug Resistant Organisms: None Reported Past Surgical History: Section, Tonsillectomy Additional Past Surgical History / Comment(s): Section X2. Past Anesthesia/Blood Transfusion Reactions: No Reported Reaction Past Psychological History: ADD/ADHD, Depression, Panic Disorder Additional Psychological History / Comment(s): Hx of panic attacks. Smoking Status: Former smoker Past Alcohol Use History: None Reported Additional Past Alcohol Use History / Comment(s): Quit smoking in 2002. Past Drug Use History: None Reported - Past Family History Mother Family Medical History: Cancer Additional Family Medical History / Comment(s): Ovarian, uterine cancer. Father Family Medical History: CVA/TIA, Diabetes Mellitus, Hypertension Medications and Allergies Home Medications Medication Instructions Recorded Confirmed Type Levothyroxine Sodium [Synthroid] 125 mcg PO QAM 08/27/14 11/11/22 History buPROPion [Wellbutrin] 100 mg PO BID 08/27/14 11/11/22 History Chlorthalidone [Hygroton] 25 mg PO QAM 06/20/21 11/16/22 History Meloxicam 15 mg PO DAILY PRN 06/20/21 11/11/22 History Rosuvastatin Calcium [Crestor] 20 mg PO HS 06/20/21 11/16/22 History Sertraline [Zoloft] 50 mg PO QAM 06/20/21 11/11/22 History tiZANidine [Zanaflex] 4 mg PO Q8HR PRN 06/20/21 11/16/22 History Cholecalciferol [Vitamin D3 (25 100 mcg PO DAILY 02/05/22 11/11/22 History Mcg = 1000 Iu)] metFORMIN HCL 500 mg PO W/SUPPER 02/05/22 11/16/22 History Multivitamins, Thera [Multivitamin 1 tab PO DAILY 02/16/22 11/11/22 History (formulary)] Vitamin B Complex 1 each PO DAILY 02/16/22 11/11/22 History Omeprazole 40 mg PO PRN 11/16/22 History Allergies Allergy/AdvReac Type Severity Reaction Status Date / Time No Known Allergies Allergy Verified 11/16/22 06:47 Physical Exam Vitals: Vital Signs Temp Pulse Pulse Pulse Resp BP BP 11/16/22 16:26 84 11/16/22 16:16 82 11/16/22 14:55 98.1 F 105 H 18 133/84 11/16/22 12:24 98.4 F 95 16 128/82 11/16/22 12:11 90 11/16/22 12:02 88 11/16/22 11:15 80 16 141/70 11/16/22 10:45 85 17 135/68 11/16/22 10:30 74 16 130/63 11/16/22 10:15 86 16 124/59 11/16/22 10:00 79 17 121/59 11/16/22 09:45 79 16 138/80 11/16/22 09:33 97.3 F L 95 126/93 11/16/22 06:59 97.0 F L 96 16 104/69 Pulse Ox 11/16/22 16:26 11/16/22 16:16 11/16/22 14:55 93 L 11/16/22 12:24 100 11/16/22 12:11 11/16/22 12:02 95 11/16/22 11:15 100 11/16/22 10:45 100 11/16/22 10:30 99 11/16/22 10:15 98 11/16/22 10:00 98 11/16/22 09:45 98 11/16/22 09:33 96 11/16/22 06:59 94 L Intake and Output 11/16/22 11/16/22 11/16/22 06:59 14:59 22:59 Intake Total 1950 Output Total 25 Balance 192 Intake: IV 1950 Output: Estimated Blood Loss 25 Other: # Voids 1 # Bowel Movements 0 Weight 125.8 kg 125.8 kg Results Labs: Abnormal Lab Results - Last 24 Hours (Table) 11/16/22 11/16/22 Range/Units 07:20 12:06 POC Glucose (mg/dL) 112 H 125 H (70-110) mg/dL
[2022-11-16] MEDS: ceFAZolin 3 GM in SODIUM CHLORIDE 0.9% 100 ML IVPB SCH ×2 (16:51→23:25)
[2022-11-16 17:06] LABS: Glucose,Whole Blood 131 mg/dL (70-110)
[2022-11-16] MEDS: INSULIN ASPART (NovoLOG) 100 UNIT/ML VIAL SQ SCH ×2 (17:07→20:32)
[2022-11-16 20:24] LABS: Glucose,Whole Blood 112 mg/dL (70-110)
[2022-11-16] MEDS: ENOXAPARIN 40 MG/0.4 ML SYRINGE SQ SCH (20:43)
[2022-11-16] MEDS: buPROPion 100 MG TAB PO SCH (20:44)
[2022-11-16] MEDS ORDERED: ATORVASTATIN 40 MG TAB PO SCH (21:00)
[2022-11-17] MEDS: HYDROmorphone 1 MG/ML 1 ML SYRINGE IVP PRN ×2 (00:04→03:07)
[2022-11-17] MEDS: LACTATED RINGERS 1,000 ML IV SCH (00:25)
[2022-11-17] MEDS: KETOROLAC 15 MG/ML 1 ML VIAL IVP SCH ×2 (05:33→13:28)
[2022-11-17 06:13] LABS: Glucose,Whole Blood 107 mg/dL (70-110)
[2022-11-17] MEDS: INSULIN ASPART (NovoLOG) 100 UNIT/ML VIAL SQ SCH ×2 (06:15→12:30)
[2022-11-17] MEDS: 0.9% NACL WITH KCL 20 MEQ/L 1,000 ML IV SCH (06:15)
[2022-11-17] MEDS ORDERED: LEVOTHYROXINE 125 MCG TAB PO SCH (06:30)
[2022-11-17] MEDS: ALBUTEROL NEBULIZED 2.5 MG/3 ML INHALATION SCH ×2 (07:46→11:12)
[2022-11-17 08:00] VITALS: RESP 18
[2022-11-17] MEDS ORDERED: 1: THIAMINE 100 MG, FOLIC ACID 1 MG, POTASSIUM CHLORIDE 20 MEQ in SODIUM CHLORIDE 0.9% 1 IVPB SCH ×5 (08:00)
[2022-11-17] MEDS ORDERED: 1: MVI, ADULT NO.4 WITH VIT K 10 ML, THIAMINE 100 MG, FOLIC ACID 1 MG, POTASSIUM CHLORID IV SCH ×6 (08:00)
[2022-11-17] MEDS ORDERED: SERTRALINE 50 MG TAB PO SCH (09:00)
[2022-11-17] MEDS ORDERED: PANTOPRAZOLE 40 MG/10 ML VIAL IV SCH (09:00)
[2022-11-17] MEDS: buPROPion 100 MG TAB PO SCH (09:08)
[2022-11-17] MEDS: ENOXAPARIN 40 MG/0.4 ML SYRINGE SQ SCH (09:08)
[2022-11-17 09:13] LABS: Basophils # (A) 0.03 X 10*3/uL (0.00-0.10); Basophils % (A) 0.3 %; Eosinophils # (A) 0.01 X 10*3/uL (0.04-0.35); Eosinophils % (A) 0.1 %; HCT 37.7 % (37.2-46.3); HGB 12.4 g/dL (12.0-15.0); Immature Grans, Automated 0.2 %; Lymphocytes % (A) 32.6 %; MCH 30.2 pg (27.0-32.0); MCHC 32.9 g/dL (32.0-37.0); MCV 91.7 fL (80.0-97.0); Mean Platelet Volume 11.3 fL (9.5-12.2); Monocytes # (A) 0.67 X 10*3/uL (0.20-1.00); Monocytes % (A) 7.3 %; NRBC Per 100 WBC 0 /100 WBCS (0.0-0.0); Neutrophils # (A) 5.48 X 10*3/uL (1.80-7.70); Neutrophils % (A) 59.5 %; Platelet Count 260 X 10*3/uL (140-440); RBC 4.11 X 10*6/uL (4.10-5.20); RDW 12.6 % (11.5-14.5); WBC 9.21 X 10*3/uL (4.50-10.00)
[2022-11-17 09:53] LABS: Magnesium 1.8 mg/dL (1.5-2.4)
[2022-11-17 09:57] LABS: African American GFR (CKD) 117.9 (60.0-200.0); Anion Gap 11.8 mmol/L (10.00-18.00); Blood Urea Nitrogen 7.5 mg/dL (9.0-27.0); Carbon Dioxide 26.2 mmol/L (20.0-27.5); Non-African American GFR(CKD) 101.7 (60.0-200.0); Phosphorus 3.2 mg/dL (2.4-5.1); Potassium 3.6 mmol/L (3.5-5.5)
[2022-11-17 11:20] LABS: Glucose,Whole Blood 130 mg/dL (70-110)
--- NOTE | 2022-11-17 13:10 | P.DS ---
Providers Date of admission: 11/16/22 06:25 Expected date of discharge: 11/17/22 Attending physician: Trevor Garcia Consults: 11/16/22 09:37 Consult Physician Routine Consulting Provider: Stuart Lafleur Consult Reason/Comments: Medical management Do you want consulting provider notified?: Yes Primary care physician: Jude Sierra [facility] Course: Discharge diagnosis 1. Morbid obesity and hiatal hernia. Status post laparoscopic sleeve gastrectomy and Hiatal hernia repair Hospital course This is a 47-year-old female known history of morbid obesity and hiatal hernia. She is status post laparoscopic sleeve gastrectomy and Hiatal hernia repair. Her pain is controlled. She is tolerating diet. She has been up and ambulating. She is urinating without difficulty. She is afebrile. She is stable for discharge. Please refer to chart for any further details. Physician Academic Program Specialist note has been reviewed by physician. Signing provider agrees with the documented findings, assessment, and plan of care. Patient Condition at Discharge: Stable Plan - Discharge Summary Discharge Rx Participant: No New Discharge Prescriptions: New Simethicone 40 mg/0.6 ml Drops [Mylicon Drops] 40 mg PO PCHS PRN #30 ml PRN Reason: Gas Ondansetron Odt [Zofran Odt] 4 mg PO Q8HR PRN #9 tab PRN Reason: Nausea HYDROcodone/APAP 5-325MG [[place] 5-325] 1 tab PO Q6HR PRN 2 Days #5 tab PRN Reason: Pain bisacodyL [Dulcolax] 5 mg PO DAILY PRN #10 tab PRN Reason: Constipation Omeprazole [PriLOSEC] 40 mg PO DAILY #30 cap Continue buPROPion [Wellbutrin] 100 mg PO BID Levothyroxine Sodium [Synthroid] 125 mcg PO QAM Vitamin B Complex 1 each PO DAILY Omeprazole 40 mg PO PRN PRN Reason: Heartburn Sertraline [Zoloft] 50 mg PO QAM Chlorthalidone [Hygroton] 25 mg PO QAM tiZANidine [Zanaflex] 4 mg PO Q8HR PRN PRN Reason: Spasms Rosuvastatin Calcium [Crestor] 20 mg PO HS metFORMIN HCL 500 mg PO W/SUPPER Cholecalciferol [Vitamin D3 (25 Mcg = 1000 Iu)] 100 mcg PO DAILY Multivitamins, Thera [Multivitamin (formulary)] 1 tab PO DAILY Discontinued Meloxicam 15 mg PO DAILY PRN PRN Reason: Pain Discharge Medication List Levothyroxine Sodium [Synthroid] 125 mcg PO QAM 08/27/14 [History] buPROPion [Wellbutrin] 100 mg PO BID 08/27/14 [History] Chlorthalidone [Hygroton] 25 mg PO QAM 06/20/21 [History] Rosuvastatin Calcium [Crestor] 20 mg PO HS 06/20/21 [History] Sertraline [Zoloft] 50 mg PO QAM 06/20/21 [History] tiZANidine [Zanaflex] 4 mg PO Q8HR PRN 06/20/21 [History] Cholecalciferol [Vitamin D3 (25 Mcg = 1000 Iu)] 100 mcg PO DAILY 02/05/22 [History] metFORMIN HCL 500 mg PO W/SUPPER 02/05/22 [History] Multivitamins, Thera [Multivitamin (formulary)] 1 tab PO DAILY 02/16/22 [History] Vitamin B Complex 1 each PO DAILY 02/16/22 [History] Omeprazole 40 mg PO PRN 11/16/22 [History] HYDROcodone/APAP 5-325MG [[place] 5-325] 1 tab PO Q6HR PRN 2 Days #5 tab 11/17/22 [Rx] Omeprazole [PriLOSEC] 40 mg PO DAILY #30 cap 11/17/22 [Rx] Ondansetron Odt [Zofran Odt] 4 mg PO Q8HR PRN #9 tab 11/17/22 [Rx] Simethicone 40 mg/0.6 ml Drops [Mylicon Drops] 40 mg PO PCHS PRN #30 ml 11/17/22 [Rx] bisacodyL [Dulcolax] 5 mg PO DAILY PRN #10 tab 11/17/22 [Rx] Follow up Appointment(s)/Referral(s): [facility] [NON-STAFF] - 11/20/22 10:00 am Activity/Diet/Wound Care/Special Instructions: Follow up with Dr. Garcia in 1 week at the Bariatric center No driving while taking [place] No lifting over 10 pounds Shower daily. No soaking or tub baths for 2 weeks Very light activity until you are reevaluated at your follow up appointment with your surgeon No straws or carbonated beverages Hold on taking the meloxicam until seen by the surgeon Discharge Disposition: HOME SELF-CARE
[2022-11-17 13:39] VITALS: BP 130/85; PULSE 102; TEMP 98.6
[2022-11-17 13:47] VITALS: BMI 44.7
--- NOTE | 2022-11-18 04:11 | P.PN ---
Subjective Progress Note Date: 11/17/22 - History of Present Illness Patient is admitted for laparoscopic had a hernia repair patient is burping didn't pass gas yet patient is otherwise clinically doing well does have mul tiple medical problems including hypertension just esophageal reflux disease. Patient is bit tachycardic. 11/17/2022 Patient is seen and evaluated and follow-up postop hernia repair with sleeve gas trectomy. Patient reports to doing well tolerating clear liquids. Patient does have history of diabetes and takes oral medication and instructed patient to discuss with surgery about size of medications that are allowed postsurgery. Patient reports has been up and walking and encouraged to increase activity. Patient also encouraged to continue with incentive spirometer use at least 10 times every hour while awake. Patient reports to feeling well with some generalized discomfort although anticipates going home today. Encourage the patient to follow-up with primary care provider as well. Review of systems: Constitutional: No reports of fatigue, fever, or chills Cardiovascular: No reports of chest pain or palpitations Respiratory: No reports of shortness of breath or cough GI: No reports of nausea, vomiting, or diarrhea, reports passing some gas with no bowel movement yet : No reports of dysuria or retention Neurovascular: No reports of weakness or numbness All medications have been reviewed PHYSICAL EXAMINATION: GENERAL: The patient is alert and oriented x3, not in any acute distress. Well developed, well nourished. Morbidly obese HEENT: Pupils are round and equally reacting to light. EOMI. No scleral icterus. No conjunctival pallor. Normocephalic, atraumatic. No pharyngeal erythema. No thyromegaly. CARDIOVASCULAR: S1 and S2 present. No murmurs, rubs, or gallops. PULMONARY: Chest is clear to auscultation, no wheezing or crackles. ABDOMEN: Soft, nontender, nondistended, normoactive bowel sounds. No palpable organomegaly. Surgical site areas appear to be clean patient has an abdominal binder MUSCULOSKELETAL: No joint swelling or deformity. EXTREMITIES: No cyanosis, clubbing, or pedal edema. NEUROLOGICAL: Gross neurological examination did not reveal any focal deficits. SKIN: No rashes. Assessment and plan -Type 2 diabetes mellitus, hold off on metformin patient will be continued on sliding scale insulin -Gastroesophageal reflux disease for which patient is on IV Protonix which can be continued. Patient is also on Toradol at this time along with simethicone. -Hyperlipidemia: Patient will resume on statins -Hypothyroidism patient was resumed on levothyroxine -Depression patient was resumed on bupropion -DVT prophylaxis: As per primary service Plan: Recommend continue with current diet per surgery recommendations and increased activity as tolerated Patient is being scheduled for discharge today and reports to feeling well Encourage the patient discuss with surgery about any medication restrictions status post sleeve gastrectomy as patient does take metformin which is rather large Recommend sliding scale and Accu-Cheks while hospitalized We will continue to follow with general surgery during hospitalization. Thank you kindly for this consultation. Patient reports possibly being discharged later today. The impression and plan of care has been dictated by Bren Ferrera, Nurse Practitioner as directed. Dr. Miquel MD I have performed a history and examination and MDM of this patient, discussed the same with the dictator, and agree with the dictator's assessment and plan as written ,documented as a scribe. Based on total visit time, I have performed more than 50% of the visit. Objective - Vital Signs Vital signs: Vital Signs Temp 98.4 F 11/17/22 07:18 Pulse 102 H 11/17/22 07:58 Resp 18 11/17/22 07:18 BP 124/64 11/17/22 07:18 Pulse Ox 95 11/17/22 07:48 FiO2 Intake & Output 11/16/22 11/17/22 11/17/22 18:59 06:59 18:59 Intake Total 1950 Output Total 25 Balance 1925 Weight 125.8 kg Intake: IV 1950 Output: Estimated Blood Loss 25 Other: # Voids 1 2 # Bowel Movements 0 - Labs CBC & Chem 7: 11/17/22 04:34 11/17/22 04:34 Labs: Abnormal Lab Results - Last 24 Hours (Table) 11/16/22 11/16/22 11/16/22 Range/Units 12:06 17:03 20:21 Eosinophils # (0.04-0.35) X 10*3/uL POC Glucose (mg/dL) 125 H 131 H 112 H (70-110) mg/dL 11/17/22 Range/Units 04:34 Eosinophils # 0.01 L (0.04-0.35) X 10*3/uL POC Glucose (mg/dL) (70-110) mg/dL
== END 2022-11-17 14:04 | disposition home or self-care (01) | DRG 621 ==
LOC: 2ORMAIN 06:25 → 4SSUR 11:23
PROVIDERS: ADMIT Surgery; ATTEND Surgery
PROC: 0BQT4ZZ Repair Diaphragm, Percutaneous Endoscopic Approach (ICD-10-PCS; principal; 2022-11-16 09:45)
PROC: 0DB64Z3 Excision of Stomach, Percutaneous Endoscopic Approach, Vertical (ICD-10-PCS; principal; 2022-11-16 09:45)
DX: E66.01 Morbid (severe) obesity due to excess calories (principal); I27.20 Pulmonary hypertension, unspecified; Z68.42 Body mass index [BMI] 45.0-49.9, adult; E11.9 Type 2 diabetes mellitus without complications; K44.9 Diaphragmatic hernia without obstruction or gangrene; K21.9 Gastro-esophageal reflux disease without esophagitis; E78.5 Hyperlipidemia, unspecified; I10 Essential (primary) hypertension; E03.9 Hypothyroidism, unspecified; F90.9 Attention-deficit hyperactivity disorder, unspecified type; F32.A Depression, unspecified; F41.0 Panic disorder [episodic paroxysmal anxiety]; Z79.890 Hormone replacement therapy; Z79.84 Long term (current) use of oral hypoglycemic drugs; Z79.1 Long term (current) use of non-steroidal anti-inflammatories (NSAID); Z79.899 Other long term (current) drug therapy; Z87.891 Personal history of nicotine dependence; Z71.3 Dietary counseling and surveillance
CPT/HCPCS: 80051; 81025; 82310; 82565; 83735; 84100; 84520; 85025; 88307; 94640; 94760

== ENCOUNTER → 2023-01-25 | Outpatient (CLI) | payer OTHER ==
--- NOTE | 2023-01-25 14:20 | P.HPBAR ---
Bariatric H&P - History & Physicial H&P Date: 01/25/23 History & Physicial: Visit/CC: Patient initial contact: Initial weight: 130.181 kg Initial weight in pounds: Height: Initial BMI: Last weight: Current weight: Current weight in pounds: Current BMI: [place] body weight (based on NIH guidelines): Excess body weight loss: The patient is a 48 year-old F who presents for Bariatric Assessment.patient presents today for bariatric follow-up. Her current weight is 250 pounds. She weighed 261 pounds approximately 2 months ago. She's had some minimal GERD. Past Medical History Past Medical History: Diabetes Mellitus, GERD/Reflux, Hyperlipidemia, Hypertension, Thyroid Disorder Additional Past Medical History / Comment(s): Pulmonary hypertension. No problems since 2019 with acid reflux. History of Any Multi-Drug Resistant Organisms: None Reported Past Surgical History: Bariatric Surgery, Section, Tonsillectomy Additional Past Surgical History / Comment(s): Section X2. Gastric sleeve 11/16/22 Past Anesthesia/Blood Transfusion Reactions: No Reported Reaction Past Psychological History: ADD/ADHD, Depression, Panic Disorder Additional Psychological History / Comment(s): Hx of panic attacks. Smoking Status: Former smoker Past Alcohol Use History: None Reported Additional Past Alcohol Use History / Comment(s): Quit smoking in 2002. Past Drug Use History: None Reported - Past Family History Mother Family Medical History: Cancer Additional Family Medical History / Comment(s): Ovarian, uterine cancer. Father Family Medical History: CVA/TIA, Diabetes Mellitus, Hypertension Surgical - Exam - General well developed, well nourished, no distress - Eyes PERRL - ENT normal pinna - Neck no masses - Respiratory normal expansion - Cardiovascular Rhythm: regular - Abdomen Abdomen: soft, non tender Bariatric Assessment & Plan Plan: status post sleeve gastrectomy. Patient's GERD is minimal old observed. She'll follow-up in 4 weeks. Bariatric Checklist Checklist: Plan: Checklist: EGD: 1. Hiatal hernia: 2. H. Pylori: HgbA1c: Vitamin D: Smoking: Former smoker Primary care physician referral: [facility] clearance: Cardiology clearance: Sleep study: Diet journal: VTE risk score: VTE risk level: Rehab needs at discharge:
[2023-01-25 14:41] VITALS: BP 113/76; PULSE 96; TEMP 98.3; BMI 39.7
[2023-01-25 20:18] LABS: HCT 42.6 % (37.2-46.3); HGB 14.2 g/dL (12.0-15.0); MCH 30.5 pg (27.0-32.0); MCHC 33.3 g/dL (32.0-37.0); MCV 91.4 fL (80.0-97.0); Mean Platelet Volume 12.8 fL (9.5-12.2); NRBC Per 100 WBC 0 /100 WBCS (0.0-0.0); Platelet Count 220 X 10*3/uL (140-440); RBC 4.66 X 10*6/uL (4.10-5.20); RDW 12.6 % (11.5-14.5); WBC 5.15 X 10*3/uL (4.50-10.00)
[2023-01-25 22:56] LABS: % Iron Saturation 28.53 (12.00-45.00); African American GFR (CKD) 88.7 (60.0-200.0); Albumin 4.5 g/dL (3.8-4.9); Albumin/Globulin Ratio 1.93 (1.60-3.17); Anion Gap 14.4 mmol/L (10.00-18.00); BUN/Creat Ratio 13.39 Ratio (12.00-20.00); Blood Urea Nitrogen 11.8 mg/dL (9.0-27.0); Calcium 9.6 mg/dL (8.7-10.3); Carbon Dioxide 22.6 mmol/L (20.0-27.5); Ferritin 34.7 ng/mL (10.0-291.0); Globulin 2.3 g/dL (1.6-3.3); Magnesium 1.9 mg/dL (1.5-2.4); Non-African American GFR(CKD) 76.5 (60.0-200.0); Potassium 4.1 mmol/L (3.5-5.5); Total Bilirubin 0.4 mg/dL (0.30-1.20); Total Protein 6.8 g/dL (6.2-8.2)
[2023-01-26 11:36] LABS: Zinc, Serum 68 ug/dL (60-130)
== END ==
LOC: BARWHC3 14:01
PROVIDERS: ATTEND Surgery
DX: E66.01 Morbid (severe) obesity due to excess calories (principal); K21.9 Gastro-esophageal reflux disease without esophagitis; E11.9 Type 2 diabetes mellitus without complications; E78.5 Hyperlipidemia, unspecified; I27.20 Pulmonary hypertension, unspecified; Z87.891 Personal history of nicotine dependence; Z71.3 Dietary counseling and surveillance; D50.8 Other iron deficiency anemias; E44.0 Moderate protein-calorie malnutrition; E56.9 Vitamin deficiency, unspecified; T56.894A Toxic effect of other metals, undetermined, initial encounter; Z68.39 Body mass index [BMI] 39.0-39.9, adult
CPT/HCPCS: 84255; 84425; 80053; 82607; 82728; 82746; 83540; 83550; 83735; 84443; 84590; 84630; 85027; 82306; 97803; G0463; 99211

== ENCOUNTER → 2023-02-22 | Outpatient (CLI) | payer OTHER ==
[2023-02-22 14:10] VITALS: BP 108/58; PULSE 84; TEMP 98.1; BMI 37.6
--- NOTE | 2023-03-23 11:38 | P.HPBAR ---
Bariatric H&P - History & Physicial H&P Date: 02/22/23 History & Physicial: Visit/CC: sleeve F/U Patient initial contact: Initial weight: 130.181 kg Initial weight in pounds: 287.00 Height: 5 ft 6.5 in Initial BMI: 45.6 Last weight: Current weight: 107.501 kg Current weight in pounds: 237.00 Current BMI: 37.6 [place] body weight (based on NIH guidelines): 60.101 kg Excess body weight loss: 32.3% The patient is a 48 year-old F who presents for Bariatric Assessment. Patient presents today for Mckeon fall. She's had some plates of GERD. She denies any dysphagia. She's lost 13 pounds since her last visit. Past Medical History Past Medical History: Diabetes Mellitus, GERD/Reflux, Hyperlipidemia, Hypertension, Thyroid Disorder Additional Past Medical History / Comment(s): Pulmonary hypertension. No problems since 2019 with acid reflux. History of Any Multi-Drug Resistant Organisms: None Reported Past Surgical History: Bariatric Surgery, Section, Tonsillectomy Additional Past Surgical History / Comment(s): Section X2. Gastric sleeve 11/16/22 Past Anesthesia/Blood Transfusion Reactions: No Reported Reaction Past Psychological History: ADD/ADHD, Depression, Panic Disorder Additional Psychological History / Comment(s): Hx of panic attacks. Smoking Status: Former smoker Past Alcohol Use History: None Reported Additional Past Alcohol Use History / Comment(s): Quit smoking in 2002. Past Drug Use History: None Reported - Past Family History Mother Family Medical History: Cancer Additional Family Medical History / Comment(s): Ovarian, uterine cancer. Father Family Medical History: CVA/TIA, Diabetes Mellitus, Hypertension Surgical - Exam Vital Signs Temp Pulse BP 98.1 F 84 108/58 02/22/23 14:01 02/22/23 14:01 02/22/23 14:01 - General well developed, well nourished - Eyes PERRL - ENT normal pinna - Neck no masses - Respiratory normal expansion - Cardiovascular Rhythm: regular - Abdomen Abdomen: soft, non tender Bariatric Assessment & Plan Plan: Patient's GERD is minimal will be observed. She'll follow-up in 4 weeks Bariatric Checklist Checklist: Plan: Checklist: EGD: 1. Hiatal hernia: 2. H. Pylori: HgbA1c: Vitamin D: Smoking: Former smoker Primary care physician referral: [facility] clearance: Cardiology clearance: Sleep study: Diet journal: VTE risk score: VTE risk level: Rehab needs at discharge:
== END ==
LOC: BARWHC3 13:36
PROVIDERS: ATTEND Surgery
DX: E66.01 Morbid (severe) obesity due to excess calories (principal); E11.9 Type 2 diabetes mellitus without complications; K21.9 Gastro-esophageal reflux disease without esophagitis; E78.5 Hyperlipidemia, unspecified; I27.20 Pulmonary hypertension, unspecified; Z68.36 Body mass index [BMI] 36.0-36.9, adult; Z87.891 Personal history of nicotine dependence; Z79.890 Hormone replacement therapy
CPT/HCPCS: 97803; G0463; 99211

== ENCOUNTER → 2023-03-29 | Outpatient (CLI) | payer OTHER ==
[2023-03-29 13:03] VITALS: BP 122/84; PULSE 85; TEMP 97.8; BMI 36.2
--- NOTE | 2023-04-26 11:25 | P.HPBAR ---
Bariatric H&P - History & Physicial H&P Date: 03/29/23 History & Physicial: Visit/CC: sleeve F/U Patient initial contact: Initial weight: 130.181 kg Initial weight in pounds: 287.00 Height: 5 ft 6.5 in Initial BMI: 45.6 Last weight: Current weight: 103.419 kg Current weight in pounds: 228.00 Current BMI: 36.2 [place] body weight (based on NIH guidelines): 60.101 kg Excess body weight loss: 38.1% The patient is a 48 year-old F who presents for Bariatric Assessment. This a 48-year-old female presents today for Mckeon follow-up. Patient has hadn't mildly to GERD. She's also has hypertension. She is seeing her PCP regarding her hypertension. Patient denies any significant abdominal complaints. Past Medical History Past Medical History: Diabetes Mellitus, GERD/Reflux, Hyperlipidemia, Hypertension, Thyroid Disorder Additional Past Medical History / Comment(s): Pulmonary hypertension. No problems since 2019 with acid reflux. History of Any Multi-Drug Resistant Organisms: None Reported Past Surgical History: Bariatric Surgery, Section, Tonsillectomy Additional Past Surgical History / Comment(s): Section X2. Gastric sleeve 11/16/22 Past Anesthesia/Blood Transfusion Reactions: No Reported Reaction Past Psychological History: ADD/ADHD, Depression, Panic Disorder Additional Psychological History / Comment(s): Hx of panic attacks. Smoking Status: Former smoker Past Alcohol Use History: None Reported Additional Past Alcohol Use History / Comment(s): Quit smoking in 2002. Past Drug Use History: None Reported - Past Family History Mother Family Medical History: Cancer Additional Family Medical History / Comment(s): Ovarian, uterine cancer. Father Family Medical History: CVA/TIA, Diabetes Mellitus, Hypertension Surgical - Exam Vital Signs Temp Pulse BP 97.8 F 85 122/84 03/29/23 13:00 03/29/23 13:00 03/29/23 13:00 - General well developed, well nourished, no distress - Eyes PERRL - ENT normal pinna - Neck no masses - Respiratory normal expansion - Cardiovascular Rhythm: regular - Abdomen Abdomen: soft, non tender Bariatric Assessment & Plan Plan: Patient's GERD is minimal will be observed. She will follow-up with her PCP regarding hypertension. She'll follow myself in 4 weeks. Bariatric Checklist Checklist: Plan: Checklist: EGD: 1. Hiatal hernia: 2. H. Pylori: HgbA1c: Vitamin D: Smoking: Former smoker Primary care physician referral: [facility] clearance: Cardiology clearance: Sleep study: Diet journal: VTE risk score: VTE risk level: Rehab needs at discharge:
== END ==
LOC: BARWHC3 12:06
PROVIDERS: ATTEND Surgery
DX: E66.01 Morbid (severe) obesity due to excess calories (principal); K21.9 Gastro-esophageal reflux disease without esophagitis; I10 Essential (primary) hypertension; E11.9 Type 2 diabetes mellitus without complications; E78.5 Hyperlipidemia, unspecified; E07.9 Disorder of thyroid, unspecified; Z87.891 Personal history of nicotine dependence; Z68.36 Body mass index [BMI] 36.0-36.9, adult
CPT/HCPCS: 99211

== ENCOUNTER → 2023-05-17 | Outpatient (CLI) | payer OTHER | END | disposition home or self-care (01) | LOC: RADUSWWP 12:35 | PROVIDERS: ATTEND Family Medicine | DX: Z53.9 Procedure and treatment not carried out, unspecified reason (principal) ==

== ENCOUNTER → 2023-05-24 | Outpatient (CLI) | payer OTHER ==
[2023-05-24 12:52] VITALS: BP 119/76; PULSE 69; TEMP 97.8; BMI 34.0
--- NOTE | 2023-07-22 15:28 | P.HPBAR ---
Bariatric H&P - History & Physicial H&P Date: 05/24/23 History & Physicial: Visit/CC: Patient initial contact: Initial weight: 130.181 kg Initial weight in pounds: Height: Initial BMI: Last weight: Current weight: Current weight in pounds: Current BMI: [place] body weight (based on NIH guidelines): Excess body weight loss: The patient is a 48 year-old F who presents for Bariatric Assessment. Patient presents today for bariatric follow-up. She currently weighs 214 pounds. Her last weight is 220 pounds. She's had some minimal GERD. Past Medical History Past Medical History: Diabetes Mellitus, GERD/Reflux, Hyperlipidemia, Hype rtension, Thyroid Disorder Additional Past Medical History / Comment(s): Pulmonary hypertension. No problems since 2019 with acid reflux. History of Any Multi-Drug Resistant Organisms: None Reported Past Surgical History: Bariatric Surgery, Section, Tonsillectomy Additional Past Surgical History / Comment(s): Section X2. Gastric sleeve 11/16/22 Past Anesthesia/Blood Transfusion Reactions: No Reported Reaction Past Psychological History: ADD/ADHD, Depression, Panic Disorder Additional Psychological History / Comment(s): Hx of panic attacks. Smoking Status: Former smoker Past Alcohol Use History: None Reported Additional Past Alcohol Use History / Comment(s): Quit smoking in 2002. Past Drug Use History: None Reported - Past Family History Father Family Medical History: CVA/TIA, Diabetes Mellitus, Hypertension Mother Family Medical History: Cancer Additional Family Medical History / Comment(s): Ovarian, uterine cancer. Surgical - Exam - General well developed, well nourished, no distress - Eyes PERRL - Abdomen Abdomen: soft, non tender Bariatric Assessment & Plan Plan: Resolving morbid obesity. Patient's GERD is minimal and will be observed. She'll follow-up in 4 weeks. Bariatric Checklist Checklist: Plan: Checklist: EGD: 1. Hiatal hernia: 2. H. Pylori: HgbA1c: Vitamin D: Smoking: Former smoker Primary care physician referral: [facility] clearance: Cardiology clearance: Sleep study: Diet journal: VTE risk score: VTE risk level: Rehab needs at discharge:
== END ==
LOC: BARWHC3 12:34
PROVIDERS: ATTEND Surgery
DX: Z53.9 Procedure and treatment not carried out, unspecified reason (principal)
CPT/HCPCS: 99211

== ENCOUNTER → 2023-05-24 | Outpatient (CLI) | payer OTHER ==
--- NOTE | 2023-05-24 13:22 | P.HPBAR ---
Bariatric H&P - History & Physicial H&P Date: 05/24/23 History & Physicial: Visit/CC: Patient initial contact: Initial weight: 130.181 kg Initial weight in pounds: Height: Initial BMI: Last weight: Current weight: Current weight in pounds: Current BMI: [place] body weight (based on NIH guidelines): Excess body weight loss: The patient is a 48 year-old F who presents for Bariatric Assessment. Patient presents today for bariatric follow-up. She currently weighs 214 pounds. Her last weight is 220 pounds. She's had some minimal GERD. Past Medical History Past Medical History: Diabetes Mellitus, GERD/Reflux, Hyperlipidemia, Hype rtension, Thyroid Disorder Additional Past Medical History / Comment(s): Pulmonary hypertension. No problems since 2019 with acid reflux. History of Any Multi-Drug Resistant Organisms: None Reported Past Surgical History: Bariatric Surgery, Section, Tonsillectomy Additional Past Surgical History / Comment(s): Section X2. Gastric sleeve 11/16/22 Past Anesthesia/Blood Transfusion Reactions: No Reported Reaction Past Psychological History: ADD/ADHD, Depression, Panic Disorder Additional Psychological History / Comment(s): Hx of panic attacks. Smoking Status: Former smoker Past Alcohol Use History: None Reported Additional Past Alcohol Use History / Comment(s): Quit smoking in 2002. Past Drug Use History: None Reported - Past Family History Mother Family Medical History: Cancer Additional Family Medical History / Comment(s): Ovarian, uterine cancer. Father Family Medical History: CVA/TIA, Diabetes Mellitus, Hypertension Surgical - Exam - General well developed, well nourished, no distress - Eyes PERRL - Abdomen Abdomen: soft, non tender Bariatric Assessment & Plan Plan: Resolving morbid obesity. Patient's GERD is minimal and will be observed. She'll follow-up in 4 weeks. Bariatric Checklist Checklist: Plan: Checklist: EGD: 1. Hiatal hernia: 2. H. Pylori: HgbA1c: Vitamin D: Smoking: Former smoker Primary care physician referral: [facility] clearance: Cardiology clearance: Sleep study: Diet journal: VTE risk score: VTE risk level: Rehab needs at discharge:
[2023-05-24 20:17] LABS: HCT 39.5 % (37.2-46.3); HGB 13.3 d/dL (12.0-15.0); MCH 31.4 pg (27.0-32.0); MCHC 33.7 d/dL (32.0-37.0); MCV 93.4 FL (80.0-97.0); Mean Platelet Volume 12.3 FL (9.5-12.2); NRBC Per 100 WBC 0 X 10*3/uL (0.00-0.01); Platelet Count 268 X 10*3/uL (140-440); RBC 4.23 X 10*6/uL (4.10-5.20); RDW 12.8 % (11.5-14.5); WBC 5.06 X 10*3/uL (4.50-10.00)
[2023-05-24 20:56] LABS: % Iron Saturation 25.36 (12.00-45.00); Blood Urea Nitrogen 10.5 mg/dL (9.0-27.0); Glucose 91 mg/dL (70-110); Iron 105 UG/DL (50-170); Magnesium 2.3 mg/dL (1.5-2.4); Total Iron Binding Capacity 414 UG/DL (228-460)
[2023-05-24 20:57] LABS: ALT 99 U/L (8-44); AST 77 U/L (13-35); Albumin 4.8 d/dL (3.8-4.9); Albumin/Globulin Ratio 2.18 Ratio (1.60-3.17); Alkaline Phosphatase 119 U/L (41-126); Calcium 9.9 mg/dL (8.7-10.3); Carbon Dioxide 25.6 mmol/L (21.6-31.8); Chloride 101 mmol/L (96-109); Globulin 2.2 d/dL (1.6-3.3); Potassium 4.5 mmol/L (3.5-5.5); Sodium 138 mmol/L (135-145); Total Bilirubin 0.4 mg/dL (0.3-1.2)
[2023-05-25 11:31] LABS: Zinc, Serum 83 ug/dL (60-130)
[2023-05-26 04:21] LABS: Vitamin A 65 ug/dL (38-106)
== END | disposition home or self-care (01) ==
LOC: LABWHC1 13:14
PROVIDERS: ATTEND Surgery
DX: E66.01 Morbid (severe) obesity due to excess calories (principal); D50.8 Other iron deficiency anemias; E44.0 Moderate protein-calorie malnutrition; E55.9 Vitamin D deficiency, unspecified; T56.894A Toxic effect of other metals, undetermined, initial encounter
CPT/HCPCS: 36415; 80053; 82306; 82607; 82728; 82746; 83540; 83550; 83735; 84255; 84425; 84443; 84590; 84630; 85027

== ENCOUNTER → 2023-06-10 | Outpatient (CLI) | payer OTHER ==
--- NOTE | 2023-06-11 10:04 | MM ---
Reason for Exam: Screening (asymptomatic). Last mammogram was performed 4 year(s) and 7 month(s) ago. Patient History: Menarche at age 8. First Full-Term at age 15. Perimenopausal. Maternal grandmother had breast cancer, age 62. Maternal aunt had breast cancer, age 62. Risk Values: Moon 5 year model risk: 0.8%. NCI Lifetime model risk: 7.1%. Prior Study Comparison: 10/25/2018 Bilateral Screening Mammogram, [facility]. Tissue Density: There are scattered fibroglandular densities. Findings: Analyzed By CAD. There is no suspicious group of microcalcifications or new suspicious mass in either breast. Overall Assessment: Negative, BI-RAD 1 Management: Screening Mammogram of both breasts in 1 year. . Patient should continue monthly self-breast exams. A clinical breast exam by your physician is recommended on an annual basis. This exam should not preclude additional follow-up of suspicious palpable abnormalities. Note on Moon scores and lifetime risk: 1. A Moon score greater than 3% is considered moderate risk. If this is the case, consider specialist referral to assess eligibility for a risk reducing agent. 2. If overall lifetime risk for the development of breast cancer is 20% or higher, the patient may qualify for future screening with alternating mammogram and breast MRI. Electronically signed and approved by: Kareem Valentine M.D. Radiologist
== END | disposition home or self-care (01) ==
LOC: RADMAMWWP 15:12
PROVIDERS: ATTEND Family Medicine
DX: Z12.31 Encounter for screening mammogram for malignant neoplasm of breast (principal); Z80.3 Family history of malignant neoplasm of breast
CPT/HCPCS: 77063; 77067

== ENCOUNTER → 2023-07-07 | Outpatient (CLI) | payer OTHER ==
--- NOTE | 2023-07-07 09:18 | US ---
EXAMINATION TYPE: US gallbladder DATE OF EXAM: 07/07/2023 COMPARISON: NONE CLINICAL INDICATION: Female, 48 years old with history of R94.5 AB LIVER FUNCTIONSK 59.00 CONSTIPATIO N; LFTs, on pain medications, Hx of GB stones TECHNIQUE: Multiple sonographic images of the right upper quadrant are obtained. FINDINGS: EXAM MEASUREMENTS: Liver Length: 16.7 cm Gallbladder Wall: 0.14 cm CBD: 0.15 cm Right Kidney: 11.7x3.9x5.5 cm UPPER STITCHER NOTES: Pancreas: wnl, partially obscured by bowel Liver: slightly enlarged and echogenic Gallbladder: cholelithiasis and adenomyomatosis of GB, largest of mobile stones measures up to 1.1 c m Evidence for sonographic Early's sign: No CBD: wnl Right Kidney: wnl some limitations due to bowel and body habitus IMPRESSION: 1. Cholelithiasis without additional sonographic signs of cholecystitis. 2. No evidence of biliary ductal dilation. 3. Mild hepatomegaly with diffuse hepatic steatosis. 4. No evidence of right-sided hydronephrosis.
== END | disposition home or self-care (01) ==
LOC: RADUSWWP 07:42
PROVIDERS: ATTEND Surgery Plastic and Reconstructive Surgery
DX: K80.20 Calculus of gallbladder without cholecystitis without obstruction (principal); K76.0 Fatty (change of) liver, not elsewhere classified; R16.0 Hepatomegaly, not elsewhere classified; R94.5 Abnormal results of liver function studies; K56.2 Volvulus; K59.00 Constipation, unspecified
CPT/HCPCS: 76705

== ENCOUNTER → 2023-08-23 | Outpatient (CLI) | payer OTHER ==
[2023-08-23 08:59] VITALS: BP 115/83; PULSE 85; TEMP 98; BMI 32.1
--- NOTE | 2023-08-23 11:59 | P.HPBAR ---
Bariatric H&P - History & Physicial H&P Date: 08/23/23 History & Physicial: Visit/CC: U/S F/U Patient initial contact: Initial weight: 130.181 kg Initial weight in pounds: 287.00 Height: 5 ft 6.5 in Initial BMI: 45.6 Last weight: Current weight: 91.626 kg Current weight in pounds: 202.00 Current BMI: 32.1 [place] body weight (based on NIH guidelines): 60.101 kg Excess body weight loss: 55.0% The patient is a 48 year-old F who presents for Bariatric Assessment. Patient complaints of intermittent right quadrant pain. Her recent ultrasound shows evidence of cholelithiasis. Past Medical History Past Medical History: Diabetes Mellitus, GERD/Reflux, Hyperlipidemia, Hypertension, Thyroid Disorder Additional Past Medical History / Comment(s): Pulmonary hypertension. No problems since 2019 with acid reflux. History of Any Multi-Drug Resistant Organisms: None Reported Past Surgical History: Bariatric Surgery, Section, Tonsillectomy Additional Past Surgical History / Comment(s): Section X2. Gastric sleeve 11/16/22 Past Anesthesia/Blood Transfusion Reactions: No Reported Reaction Past Psychological History: ADD/ADHD, Depression, Panic Disorder Additional Psychological History / Comment(s): Hx of panic attacks. Smoking Status: Former smoker Past Alcohol Use History: None Reported Additional Past Alcohol Use History / Comment(s): Quit smoking in 2002. Past Drug Use History: None Reported - Past Family History Mother Family Medical History: Cancer Additional Family Medical History / Comment(s): Ovarian, uterine cancer. Father Family Medical History: CVA/TIA, Diabetes Mellitus, Hypertension Surgical - Exam Vital Signs Temp Pulse BP 98 F 85 115/83 08/23/23 08:47 08/23/23 08:47 08/23/23 08:47 - General well developed, well nourished, no distress - Eyes PERRL, normal ocular movement - Abdomen Abdomen: soft, non tender Bariatric Assessment & Plan Plan: Sent medical advice. Patient was scheduled for laparoscopic cholecystectomy. Bariatric Checklist Checklist: Plan: Checklist: EGD: 1. Hiatal hernia: 2. H. Pylori: HgbA1c: Vitamin D: Smoking: Former smoker Primary care physician referral: [facility] clearance: Cardiology clearance: Sleep study: Diet journal: VTE risk score: VTE risk level: Rehab needs at discharge:
== END ==
LOC: BARWHC3 08:30
PROVIDERS: ATTEND Surgery
DX: E66.01 Morbid (severe) obesity due to excess calories (principal); E11.9 Type 2 diabetes mellitus without complications; K21.9 Gastro-esophageal reflux disease without esophagitis; E78.5 Hyperlipidemia, unspecified; I10 Essential (primary) hypertension; E07.9 Disorder of thyroid, unspecified; F32.A Depression, unspecified; F98.8 Other specified behavioral and emotional disorders with onset usually occurring in childhood and adolescence; F90.9 Attention-deficit hyperactivity disorder, unspecified type; Z98.84 Bariatric surgery status; Z87.891 Personal history of nicotine dependence; Z68.32 Body mass index [BMI] 32.0-32.9, adult; Z79.890 Hormone replacement therapy
CPT/HCPCS: 99211

== ENCOUNTER → 2023-08-24 | Outpatient (CLI) | payer OTHER ==
[2023-08-24 16:01] LABS: HCT 45.7 % (37.2-46.3); HGB 14.3 d/dL (12.0-15.0); MCH 31.2 pg (27.0-32.0); MCHC 31.3 d/dL (32.0-37.0); MCV 99.6 FL (80.0-97.0); NRBC Per 100 WBC 0 X 10*3/uL (0.00-0.01); Platelet Count 267 X 10*3/uL (140-440); RBC 4.59 X 10*6/uL (4.10-5.20); RDW 12.5 % (11.5-14.5); WBC 5.01 X 10*3/uL (4.50-10.00)
[2023-08-24 16:08] LABS: % Iron Saturation 22.64 (12.00-45.00); ALT 140 U/L (8-44); AST 85 U/L (13-35); Albumin 4.6 d/dL (3.8-4.9); Albumin/Globulin Ratio 2.09 Ratio (1.60-3.17); Alkaline Phosphatase 127 U/L (41-126); BUN/Creat Ratio 19.57 Ratio (12.00-20.00); Blood Urea Nitrogen 13.7 mg/dL (9.0-27.0); Calcium 9.9 mg/dL (8.7-10.3); Carbon Dioxide 23.3 mmol/L (21.6-31.8); Chloride 103 mmol/L (96-109); Globulin 2.2 d/dL (1.6-3.3); Glucose 106 mg/dL (70-110); Iron 91 UG/DL (50-170); Potassium 4.3 mmol/L (3.5-5.5); Sodium 139 mmol/L (135-145); Total Bilirubin 0.2 mg/dL (0.3-1.2); Total Iron Binding Capacity 402 UG/DL (228-460); Total Protein 6.8 d/dL (6.2-8.2)
[2023-08-25 12:37] LABS: Zinc, Serum 90 ug/dL (60-130)
[2023-08-26 06:12] LABS: Vit B1(Thiamine) 59 ug/L (38-122)
== END | disposition home or self-care (01) ==
LOC: LABWHC1 08:22
PROVIDERS: ATTEND Surgery
DX: D50.8 Other iron deficiency anemias (principal); E66.01 Morbid (severe) obesity due to excess calories; E44.0 Moderate protein-calorie malnutrition; E55.9 Vitamin D deficiency, unspecified; T56.894A Toxic effect of other metals, undetermined, initial encounter
CPT/HCPCS: 36415; 80053; 82306; 82607; 82746; 83540; 83550; 83735; 84255; 84425; 84443; 84590; 84630; 85027

== ENCOUNTER 2023-08-30 07:18 | Day surgery (SDC) | payer OTHER ==
[2023-08-25 09:50] VITALS: BMI 31.6
[2023-08-30] MEDS ORDERED: droPERidol 5 MG/2 ML VIAL IVP ONE (07:37)
[2023-08-30] MEDS ORDERED: DEXAMETHASONE SOD PHOSPHATE 4 MG/ML 1 ML VIAL IV ONE (07:37)
[2023-08-30] MEDS ORDERED: LACTATED RINGERS 1,000 ML IV SCH (07:37)
[2023-08-30] MEDS ORDERED: ONDANSETRON 4 MG/2 ML VIAL IVP ONE (07:37)
[2023-08-30] MEDS ORDERED: LIDOCAINE 1% (10MG/ML) FOR IV START INTRADERMA PRN (07:37)
[2023-08-30 08:11] VITALS: RESP 16
[2023-08-30] MEDS ORDERED: METOCLOPRAMIDE 5 MG/ML 2 ML VIAL ONE (08:15)
[2023-08-30] MEDS ORDERED: HEPARIN SODIUM,PORCINE/PF 5,000 UNIT/0.5 ML SYRINGE SQ ONE (08:15)
[2023-08-30] MEDS ORDERED: ACETAMINOPHEN TAB 500 MG TAB ONE (08:15)
[2023-08-30] MEDS ORDERED: FAMOTIDINE 20 MG/2 ML VIAL IVP ONE (08:47)
[2023-08-30] MEDS ORDERED: ROCURONIUM 10 MG/ML (5 ML VIAL) IV ONE (08:53)
[2023-08-30] MEDS ORDERED: fentaNYL (PF) 50 MCG/ML 2 ML AMP ONE (08:53)
[2023-08-30] MEDS ORDERED: LIDOCAINE 1% INJ 10MG/ML (20 ML MDV) ONE (08:53)
[2023-08-30] MEDS ORDERED: SUCCINYLCHOLINE CHLORIDE 200 MG/10 ML VIAL IV ONE (08:53)
[2023-08-30] MEDS ORDERED: KETOROLAC 15 MG/ML 1 ML VIAL ONE (08:53)
[2023-08-30] MEDS ORDERED: PROPOFOL 10 MG/ML 20 ML VIAL IV ONE (08:53)
[2023-08-30] MEDS ORDERED: PHENYLEPHRINE-0.9% NACL SYG 1,000 MCG/10 ML SYRINGE ONE (08:53)
[2023-08-30] MEDS ORDERED: NEOSTIGMINE 1 MG/ML 10 ML VIAL ONE (08:53)
[2023-08-30] MEDS ORDERED: GLYCOPYRROLATE 0.2 MG/ML 2 ML VIAL ONE (08:53)
[2023-08-30] MEDS ORDERED: MIDAZOLAM 2 MG/2 ML VIAL ONE (08:53)
[2023-08-30] MEDS ORDERED: LIDOCAINE 0.5%-EPI 1:200,000 50 ML VIAL SQ ONE (09:14)
--- NOTE | 2023-08-30 09:43 | P.OP ---
Date of Procedure: 08/30/23 Preoperative Diagnosis: Cholecystitis Postoperative Diagnosis: Cholecystitis Cholelithiasis Procedure(s) Performed: Laparoscopic cholecystectomy Anesthesia: BENNIE Surgeon: Trevor Garcia Estimated Blood Loss (ml): 5 Pathology: other (Gallbladder) Condition: stable Disposition: PACU Description of Procedure: The patient was placed on the operating table. The patient received a general endotracheal tube anesthesia. The patients abdomen was prepped and draped in the usual sterile fashion. Through an infraumbilical stab incision, the fascia of the anterior abdominal wall was grasped with a pair of Kochers and then the Veress needle was placed in the peritoneal cavity. Position of the Veress needle was confirmed with positive drop test. The abdomen was then insufflated. After adequate insufflation, the 10 mm trocar was placed in the peritoneal cavity. Following this the laparoscope was placed in the peritoneal cavity. The patient was placed in the head-up, right side up position and then a 5 mm trocar was placed in the right lateral and right subcostal position under direct visualization. A 8 mm trocar was placed in the epigastric position. The gallbladder was grasped in the fundus and infundibulum. Traction on the gallbladder was placed in the lateral and the cephalad positions. The triangle of Calot was visualized.. The cystic duct was bluntly dissected until the union of the cystic duct and common bile duct was seen. A critical view of safety was achieved. The cystic duct was then divided and sealed with the Harmonic scissors. A PDS Endoloop was then placed throughout the cystic duct stump. The cystic artery divided and sealed with the Harmonic scissors. The gallbladder was then removed from the liver bed using Harmonic scissors. The gallbladder was then extracted through the epigastric port site. Operative field was checked for any bleeding spots and Harmonic scissors was used to coagulate the liver bed. The abdomen was irrigated. The trocars were removed. The skin was closed using interrupted 3-0 Vicryl suture. Dermabond dressing were applied. The patient tolerated the procedure well.
[2023-08-30] MEDS: HYDROmorphone 0.5 MG/0.5 ML SYRINGE IVP PRN ×3 (09:58→10:15)
[2023-08-30 10:14] VITALS: TEMP 96.9
[2023-08-30 11:29] VITALS: BP 104/56; PULSE 66
== END 2023-08-30 11:51 | disposition home or self-care (01) ==
LOC: OR 07:18
PROVIDERS: ATTEND Surgery
DX: K80.10 Calculus of gallbladder with chronic cholecystitis without obstruction (principal); I10 Essential (primary) hypertension; E78.5 Hyperlipidemia, unspecified; E07.9 Disorder of thyroid, unspecified; F90.9 Attention-deficit hyperactivity disorder, unspecified type; F41.0 Panic disorder [episodic paroxysmal anxiety]; K21.9 Gastro-esophageal reflux disease without esophagitis; Z79.1 Long term (current) use of non-steroidal anti-inflammatories (NSAID); Z79.52 Long term (current) use of systemic steroids; Z87.891 Personal history of nicotine dependence; Z79.890 Hormone replacement therapy; Z79.899 Other long term (current) drug therapy; Z86.39 Personal history of other endocrine, nutritional and metabolic disease; Z98.84 Bariatric surgery status; Z98.890 Other specified postprocedural states
CPT/HCPCS: 81025; 88304; 47562; J2250; J0330; J1100; J2710; J2765; J0690; J2405; J2001; J3010; J3490; J1885; J2704; J1170; J1644; J2371

== ENCOUNTER → 2023-11-15 | Outpatient (CLI) | payer OTHER ==
[2023-11-15 11:04] VITALS: BP 110/77; PULSE 101; TEMP 98.3; BMI 30.3
--- NOTE | 2023-12-06 15:13 | P.HPBAR ---
Bariatric H&P - History & Physicial H&P Date: 11/15/23 History & Physicial: Visit/CC: 1 year sleeve F/U Patient initial contact: Initial weight: 130.181 kg Initial weight in pounds: 287.00 Height: 5 ft 6.5 in Initial BMI: 45.6 Last weight: Current weight: 86.636 kg Current weight in pounds: 191.00 Current BMI: 30.3 [place] body weight (based on NIH guidelines): 60.101 kg Excess body weight loss: 62.1% The patient is a 48 year-old F who presents for Bariatric Assessment. Patient presents today for bariatric follow-up. She is approxi-1 year out from her sleeve gastrectomy. Patient is lost another 11 pounds since her last visit. She has had minimal gerd. Past Medical History Past Medical History: Diabetes Mellitus, GERD/Reflux, Hyperlipidemia, Hypertension, Thyroid Disorder Additional Past Medical History / Comment(s): Pulmonary hypertension. No problems since 2019 with acid reflux. History of Any Multi-Drug Resistant Organisms: None Reported Past Surgical History: Bariatric Surgery, Section, Cholecystectomy, Tonsillectomy Additional Past Surgical History / Comment(s): Section X2. Gastric sleeve 11/16/22 Past Anesthesia/Blood Transfusion Reactions: No Reported Reaction Past Psychological History: ADD/ADHD, Depression, Panic Disorder Additional Psychological History / Comment(s): Hx of panic attacks. Smoking Status: Former smoker Past Alcohol Use History: None Reported Additional Past Alcohol Use History / Comment(s): Quit smoking in 2002. Past Drug Use History: None Reported - Past Family History Mother Family Medical History: Cancer Additional Family Medical History / Comment(s): Ovarian, uterine cancer. Father Family Medical History: CVA/TIA, Diabetes Mellitus, Hypertension Surgical - Exam Vital Signs Temp Pulse BP 98.3 F 101 H 110/77 11/15/23 10:39 11/15/23 10:39 11/15/23 10:39 - General well developed, well nourished, no distress - Eyes PERRL - ENT normal pinna - Neck no masses - Respiratory normal expansion - Cardiovascular Rhythm: regular - Abdomen Abdomen: soft, non tender Bariatric Assessment & Plan Plan: Status post sleeve gastric. Patient's gerd is minimal be observed. She will follow-up in 3 months. Bariatric Checklist Checklist: Plan: Checklist: EGD: 1. Hiatal hernia: 2. H. Pylori: HgbA1c: Vitamin D: Smoking: Former smoker Primary care physician referral: [facility] Psychiat[facility] clearance: Cardiology clearance: Sleep study: Diet journal: VTE risk score: VTE risk level: Rehab needs at discharge:
== END ==
LOC: BARWHC3 10:25
PROVIDERS: ATTEND Surgery
DX: Z09 Encounter for follow-up examination after completed treatment for conditions other than malignant neoplasm (principal); K21.9 Gastro-esophageal reflux disease without esophagitis; I10 Essential (primary) hypertension; E78.5 Hyperlipidemia, unspecified; E11.9 Type 2 diabetes mellitus without complications; E07.9 Disorder of thyroid, unspecified; I27.20 Pulmonary hypertension, unspecified; F32.A Depression, unspecified; F98.8 Other specified behavioral and emotional disorders with onset usually occurring in childhood and adolescence; F90.9 Attention-deficit hyperactivity disorder, unspecified type; Z86.59 Personal history of other mental and behavioral disorders; Z98.84 Bariatric surgery status; Z87.891 Personal history of nicotine dependence; Z79.890 Hormone replacement therapy
CPT/HCPCS: 99211

== ENCOUNTER → 2023-11-19 | Outpatient (CLI) | payer OTHER ==
[2023-11-19 16:08] LABS: HCT 42.8 % (37.2-46.3); HGB 14.2 g/dL (12.0-15.0); MCH 30.5 pg (27.0-32.0); MCHC 33.2 g/dL (32.0-37.0); MCV 91.8 FL (80.0-97.0); Mean Platelet Volume 12.5 FL (9.5-12.2); NRBC Per 100 WBC 0 X 10*3/uL (0.00-0.01); Platelet Count 219 X 10*3/uL (140-440); RBC 4.66 X 10*6/uL (4.10-5.20); WBC 5.58 X 10*3/uL (4.50-10.00)
[2023-11-19 16:58] LABS: % Iron Saturation 26.67 (12.00-45.00); ALT 135 U/L (8-44); AST 69 U/L (13-35); Albumin 4.6 g/dL (3.8-4.9); Alkaline Phosphatase 168 U/L (41-126); BUN/Creat Ratio 19.71 Ratio (12.00-20.00); Blood Urea Nitrogen 13.8 mg/dL (9.0-27.0); Chloride 106 mmol/L (96-109); Ferritin 70.4 ng/mL (10.0-291.0); Globulin 2.3 g/dL (1.6-3.3); Glucose 99 mg/dL (70-110); Iron 116 UG/DL (50-170); Magnesium 2.2 mg/dL (1.5-2.4); Potassium 4.3 mmol/L (3.5-5.5); Sodium 144 mmol/L (135-145); Total Bilirubin 0.3 mg/dL (0.3-1.2); Total Iron Binding Capacity 435 UG/DL (228-460); Total Protein 6.9 g/dL (6.2-8.2)
== END | disposition home or self-care (01) ==
LOC: LABWHC1 07:40
PROVIDERS: ATTEND Surgery
DX: E66.01 Morbid (severe) obesity due to excess calories (principal); D50.8 Other iron deficiency anemias; E44.0 Moderate protein-calorie malnutrition; E55.9 Vitamin D deficiency, unspecified; T56.894A Toxic effect of other metals, undetermined, initial encounter
CPT/HCPCS: 36415; 80053; 82306; 82607; 82728; 82746; 83540; 83550; 83735; 84255; 84425; 84443; 84590; 84630; 85027

== ENCOUNTER → 2024-01-10 | Outpatient (CLI) | payer OTHER | LOC: BARWHC3 10:12 | PROVIDERS: ATTEND Surgery | DX: Z53.21 Procedure and treatment not carried out due to patient leaving prior to being seen by health care provider (principal) ==

== ENCOUNTER → 2024-01-24 | Outpatient (CLI) | payer OTHER ==
[2024-01-24 13:44] VITALS: BP 109/64; PULSE 82; TEMP 98.2; BMI 30.9
--- NOTE | 2024-01-27 12:59 | P.HPBAR ---
Bariatric H&P - History & Physicial H&P Date: 01/24/24 History & Physicial: Visit/CC: sleeve F/U Patient initial contact: Initial weight: 130.181 kg Initial weight in pounds: 287.00 Height: 5 ft 6.5 in Initial BMI: 45.6 Last weight: Current weight: 88.451 kg Current weight in pounds: 195.00 Current BMI: 30.9 [place] body weight (based on NIH guidelines): 60.101 kg Excess body weight loss: 59.5% The patient is a 49 year-old F who presents for Bariatric Assessment.patient presents today for bariatric follow-up. She has had a 4 pound weight gain since her last visit. She has minimal complaints of GERD. Past Medical History Past Medical History: Diabetes Mellitus, GERD/Reflux, Hyperlipidemia, Hypertension, Thyroid Disorder Additional Past Medical History / Comment(s): Pulmonary hypertension. No problems since 2019 with acid reflux. History of Any Multi-Drug Resistant Organisms: None Reported Past Surgical History: Bariatric Surgery, Section, Cholecystectomy, Tonsillectomy Additional Past Surgical History / Comment(s): Section X2. Gastric sleeve 11/16/22 Past Anesthesia/Blood Transfusion Reactions: No Reported Reaction Past Psychological History: ADD/ADHD, Depression, Panic Disorder Additional Psychological History / Comment(s): Hx of panic attacks. Smoking Status: Former smoker Past Alcohol Use History: None Reported Additional Past Alcohol Use History / Comment(s): Quit smoking in 2002. Past Drug Use History: None Reported - Past Family History Mother Family Medical History: Cancer Additional Family Medical History / Comment(s): Ovarian, uterine cancer. Father Family Medical History: CVA/TIA, Diabetes Mellitus, Hypertension Surgical - Exam Vital Signs Temp Pulse BP 98.2 F 82 109/64 01/24/24 13:34 01/24/24 13:34 01/24/24 13:34 - General well developed, well nourished, no distress - Eyes PERRL - ENT normal pinna, normal nares - Neck no masses - Respiratory normal expansion - Cardiovascular Rhythm: regular - Abdomen Abdomen: soft, non tender Bariatric Assessment & Plan Plan: patient's GERD is minimal will be observed. She'll follow-up in 4 weeks. Bariatric Checklist Checklist: Plan: Checklist: EGD: 1. Hiatal hernia: 2. H. Pylori: HgbA1c: Vitamin D: Smoking: Former smoker Primary care physician referral: [facility] Psychiatry clearance: Cardiology clearance: Sleep study: Diet journal: VTE risk score: VTE risk level: Rehab needs at discharge:
== END ==
LOC: BARWHC3 09:30
PROVIDERS: ATTEND Surgery
DX: K21.9 Gastro-esophageal reflux disease without esophagitis (principal); Z98.84 Bariatric surgery status; Z87.891 Personal history of nicotine dependence
CPT/HCPCS: 99211

== ENCOUNTER 2025-04-17 00:59 | Emergency (ER) | payer OTHER ==
[2025-04-17 01:09] VITALS: TEMP 97.1
--- NOTE | 2025-04-17 01:10 | ED ---
Nausea/Vomiting/Diarrhea HPI - General Source: patient Mode of arrival: ambulatory Limitations: no limitations <Martin Peterson - Last Filed: 04/17/25 01:09> <Megan Moffett - Last Filed: 04/17/25 07:14> - General Stated complaint: Abdominal pain Time Seen by Provider: 04/17/25 01:09 - History of Present Illness Initial comments: 50-year-old female presenting with chief complaint of nausea and vomiting for 3 hours. She also admits to abdominal pain in the epigastric region on the left side of the abdomen. States it is sharp in nature. History of gastric bypass and hernia repair surgery. No diarrhea. (Martin Peterson) 50-year-old female with past medical history of gastric surgery, hiatal hernia surgery who presents emergency department with nausea vomiting. States that she was at home when she had sudden onset of nausea and vomiting. She had several episodes over a 3-hour period. Reports that she then began having pain in the epigastric region on the left side. Pain was sharp in nature. She denies any sick contacts. No fevers. No recent travel. Denies eating any tainted foods. The abdominal pain has alleviated at this time. She did take a Zofran at home and it appears that this also assisted her nausea. She denies dysuria, hematuria or difficulty voiding. Denies diarrhea, constipation, black or bloody stools. No other alleviating, precipitating or modifying factors (Megan Moffett) - Related Data Home Medications Medication Instructions Recorded Confirmed Levothyroxine Sodium [Synthroid] 150 mcg PO QAM 08/27/14 01/24/24 Rosuvastatin Calcium [Crestor] 20 mg PO HS 06/20/21 01/24/24 Sertraline [Zoloft] 50 mg PO QAM 06/20/21 01/24/24 tiZANidine [Zanaflex] 4 mg PO Q8HR PRN 06/20/21 01/24/24 Calcium Carbonate [Calcium] 600 mg PO DAILY 08/25/23 01/24/24 Meloxicam, Submicronized 7.5 mg PO BID 08/25/23 01/24/24 [Meloxicam] Multivitamins, Thera [Multivitamin 1 tab PO DAILY 11/08/23 04/08/24 (formulary)] Previous Rx's Medication Instructions Recorded Omeprazole [PriLOSEC] 40 mg PO DAILY #30 cap 11/17/22 Simethicone 40 mg/0.6 ml Drops 40 mg PO PCHS PRN #30 ml 11/17/22 [Mylicon Drops] bisacodyL [Dulcolax] 5 mg PO DAILY PRN #10 tab 11/17/22 Acetaminophen Tab [Tylenol] 650 mg PO Q6H #30 tab 08/30/23 Docusate [Colace] 100 mg PO BID #20 capsule 08/30/23 Ibuprofen [Motrin] 600 mg PO Q6HR PRN #40 tab 08/30/23 oxyCODONE HCL [OxyIR] 5 mg PO Q6H PRN 3 Days #10 tab 08/30/23 Allergies Allergy/AdvReac Type Severity Reaction Status Date / Time No Known Allergies Allergy Verified 08/30/23 07:49 Review of Systems ROS Other: All systems not noted in ROS Statement are negative. <Martin Peterson - Last Filed: 04/17/25 01:09> ROS Other: All systems not noted in ROS Statement are negative. <Megan Moffett - Last Filed: 04/17/25 07:14> ROS Statement: Those systems with pertinent positive or pertinent negative responses have been documented in the HPI. Past Medical History Past Medical History: Diabetes Mellitus, GERD/Reflux, Hyperlipidemia, Hypertensi on, Thyroid Disorder Additional Past Medical History / Comment(s): Pulmonary hypertension. No problems since 2019 with acid reflux. History of Any Multi-Drug Resistant Organisms: None Reported Past Surgical History: Bariatric Surgery, Section, Cholecystectomy, Tonsillectomy Additional Past Surgical History / Comment(s): Section X2. Gastric sleeve 11/16/22 Past Anesthesia/Blood Transfusion Reactions: No Reported Reaction Past Psychological History: ADD/ADHD, Depression, Panic Disorder Additional Psychological History / Comment(s): Hx of panic attacks. Smoking Status: Former smoker Past Alcohol Use History: None Reported Additional Past Alcohol Use History / Comment(s): Quit smoking in 2002. Past Drug Use History: None Reported - Past Family History Mother Family Medical History: Cancer Additional Family Medical History / Comment(s): Ovarian, uterine cancer. Father Family Medical History: CVA/TIA, Diabetes Mellitus, Hypertension <Martin Peterson - Last Filed: 04/17/25 01:09> General Exam <Martin Peterson - Last Filed: 04/17/25 01:09> General appearance: alert, in no apparent distress Head exam: Present: atraumatic, normocephalic, normal inspection Eye exam: Present: normal appearance, PERRL, EOMI. Absent: scleral icterus, conjunctival injection, periorbital swelling ENT exam: Present: normal exam, mucous membranes moist Neck exam: Present: normal inspection. Absent: tenderness, meningismus, ly mphadenopathy Respiratory exam: Present: normal lung sounds bilaterally. Absent: respiratory distress, wheezes, rales, rhonchi, stridor Cardiovascular Exam: Present: regular rate, normal rhythm, normal heart sounds. Absent: systolic murmur, diastolic murmur, rubs, gallop, clicks GI/Abdominal exam: Present: soft, normal bowel sounds. Absent: distended, tenderness, guarding, rebound, rigid Extremities exam: Present: normal inspection, full ROM, normal capillary refill. Absent: tenderness, pedal edema, joint swelling, calf tenderness Back exam: Present: normal inspection Neurological exam: Present: alert, oriented X3, CN II-XII intact Psychiatric exam: Present: normal affect, normal mood Skin exam: Present: warm, dry, intact, normal color. Absent: rash <Megan Moffett - Last Filed: 04/17/25 07:14> - General Exam Comments Initial Comments: Visual Physical Exam Vital signs reviewed General: Well-appearing, nontoxic, no acute distress. Head: Normocephalic, atraumatic Eyes: PERRLA, EOMI ENT: Airway patent Chest: Nonlabored breathing Skin: No visual rash, normal skin tone Neuro: Alert and oriented 3 Musculoskeletal: No gross abnormalities (Martin Peterson) Course Vital Signs 04/17/25 04/17/25 04/17/25 01:07 04:31 04:39 Temperature 97.1 F L 97.1 F L Pulse Rate 69 73 73 Respiratory 22 18 18 Rate Blood Pressure 124/86 109/96 109/96 O2 Sat by Pulse 99 97 97 Oximetry Medical Decision Making <Martin Peterson - Last Filed: 04/17/25 01:09> - Lab Data Result diagrams: 04/17/25 02:07 04/17/25 02:07 <Megan Moffett - Last Filed: 04/17/25 07:14> - Medical Decision Making I performed the quick note portion of this visit, electronically signed Martin Peterson PA-C (Martin Peterson) Was pt. sent in by a medical professional or institution (, PA, [employer], urgent care, hospital, or [facility]...) When possible be specific @ -No Did you speak to anyone other than the patient for history (EMS, parent, family, police, friend...)? What history was obtained from this source @ -No Did you review nursing and triage notes (agree or disagree)? Why? @ -I reviewed and agree with nursing and triage notes Were old charts reviewed (outside hosp., previous admission, EMS record, old EKG, old radiological studies, urgent care reports/EKG's, [facility] records)? Report findings @ -No old charts were reviewed Differential Diagnosis (chest pain, altered mental status, abdominal pain women, abdominal pain men, vaginal bleeding, weakness, fever, dyspnea, syncope, headache, dizziness, GI bleed, back pain, seizure, CVA, palpatations, mental health, musculoskeletal)? @ -Differential abdominal pain women EKG interpreted by me (3pts min.). @ -Yes and demonstrates sinus rhythm with a rate of 64. CT interval 151. QRS 93. QTc of 406. No acute ST segment elevations or depressions X-rays interpreted by me (1pt min.). @ -Yes which demonstrates no acute process CT interpreted by me (1pt min.). @ -None done U/S interpreted by me (1pt. min.). @ -None done What testing was considered but not performed or refused? (CT, X-rays, U/S, labs)? Why? @ -CT was considered however patient has no symptoms at this time and therefore we will monitor her symptoms and she will return for any new or worsening symptoms What meds were considered but not given or refused? Why? @ -None Did you discuss the management of the patient with other professionals (professionals i.e. , SHE[facility], [employer], lab, RT, psych nurse, director social service, loss prevention coordinator, teacher, chief accounting officer, case management coordinator)? Give summary @ -No Was smoking cessation discussed for >3mins.? @ -No Was critical care preformed (if so, how long)? @ -No Were there social determinants of health that impacted care today? How? (Homelessness, low income, unemployed, alcoholism, drug addiction, transportation, low edu. Level, literacy, decrease access to med. care, custodial, rehab)? @ -No Was there de-escalation of care discussed even if they declined (Discuss DNR or withdrawal of care, Hospice)? DNR status @ -No What co-morbidities impacted this encounter? (DM, HTN, Smoking, COPD, CAD, Cancer, CVA, ARF, Chemo, Hep., AIDS, mental health diagnosis, sleep apnea, morbid obesity)? @ -Obesity with history of gastric bypass Was patient admitted / discharged? Hospital course, mention meds given and route, prescriptions, significant lab abnormalities, going to OR and other pertinent info. @ -Upon arrival patient seen and evaluated in bed 22. Thorough history and physical exam was performed. Labs have been conducted. KUB was performed. Patient has no symptoms at this time. I did offer CT however patient wants to go home. She does have an appointment coming up with her surgeon next week. She is to call and make an appointment. Return for any new or worsening symptoms. Patient agreeable to plan she was discharged in stable condition Undiagnosed new problem with uncertain prognosis? @ -No Drug Therapy requiring intensive monitoring for toxicity (Heparin, Nitro, Insulin, Cardizem)? @ -No Were any procedures done? @ -No Diagnosis/symptom? @ -Acute nausea and vomiting, acute epigastric abdominal pain Acute, or Chronic, or Acute on Chronic? @ -Acute Uncomplicated (without systemic symptoms) or Complicated (systemic symptoms)? @ -Complicated Side effects of treatment? @ -No Exacerbation, Progression, or Severe Exacerbation? @ -No Poses a threat to life or bodily function? How? (Chest pain, USA, NM, pneumonia, PE, COPD, DKA, ARF, appy, cholecystitis, CVA, Diverticulitis, Homicidal, Suicidal, threat to staff... and all critical care pts) @ -No (Megan Moffett) - Lab Data Lab Results 04/17/25 04/17/25 04/17/25 Range/Units 02:07 02:07 02:07 WBC 10.37 H (4.50-10.00) 10*3/uL RBC 4.58 (4.10-5.20) 10*6/uL Hgb 14.3 (12.0-15.0) g/dL Hct 41.3 (37.2-46.3) % MCV 90.2 (80.0-97.0) fL MCH 31.2 (27.0-32.0) pg MCHC 34.6 (32.0-37.0) g/dL Plt Count 338 (140-440) 10*3/uL MPV 10.3 (9.5-12.2) fL Immature Gran % (Auto) 0.3 % Neutrophils % 74.5 % Lymphocytes % 16.9 % Monocytes % 6.6 % Eosinophils % 0.9 % Basophils % 0.8 % Immature Gran # 0.03 (0.00-0.04) 10*3/uL Neutrophils # 7.74 H (1.80-7.70) 10*3/uL Lymphocytes # 1.75 (0.90-5.00) 10*3/uL Monocytes # 0.68 (0.20-1.00) 10*3/uL Eosinophils # 0.09 (0.04-0.35) 10*3/uL Basophils # 0.08 (0.00-0.10) 10*3/uL Sodium 137 (137-145) mmol/L Potassium 4.7 (3.5-5.1) mmol/L Chloride 99 (98-107) mmol/L Carbon Dioxide 25 (22-30) mmol/L Anion Gap 13 mmol/L BUN 24 H (7-17) mg/dL Creatinine 0.76 (0.52-1.04) mg/dL Est GFR (CKD-EPI)AfAm >90 (>60 ml/min/1.73 sqM) Est GFR (CKD-EPI)NonAf >90 (>60 ml/min/1.73 sqM) Glucose 121 H (74-99) mg/dL Calcium 10.5 H (8.4-10.2) mg/dL Total Bilirubin 0.6 (0.2-1.3) mg/dL AST 60 H (14-36) U/L ALT 85 H (4-34) U/L Alkaline Phosphatase 103 (38-126) U/L Troponin I <0.012 (0.000-0.034) ng/mL Total Protein 7.4 (6.3-8.2) g/dL Albumin 4.9 (3.5-5.0) g/dL Amylase 106 (30-110) U/L Lipase 218 (23-300) U/L Disposition <Martin Peterson - Last Filed: 04/17/25 01:09> Is patient prescribed a controlled substance at d/c from ED?: No Time of Disposition: 04:37 <Megan Moffett - Last Filed: 04/17/25 07:14> Clinical Impression: Nausea and vomiting Disposition: HOME SELF-CARE Condition: Stable Instructions (If sedation given, give patient instructions): Acute Nausea and Vomiting (ED) Additional Instructions: Monitor your symptoms. Slowly advance your diet. Follow-up with Dr. Garcia at your scheduled appointment and return for any new or worsening symptoms Referrals: Jude Sierra DO [Primary Care Provider] - 1-2 days Trevor Garcia MD [STAFF PHYSICIAN] - 1-2 days
[2025-04-17 02:27] LABS: Basophils # (A) 0.08 10*3/uL (0.00-0.10); Basophils % (A) 0.8 %; Eosinophils # (A) 0.09 10*3/uL (0.04-0.35); Eosinophils % (A) 0.9 %; HCT 41.3 % (37.2-46.3); HGB 14.3 g/dL (12.0-15.0); Lymphocytes # (A) 1.75 10*3/uL (0.90-5.00); Lymphocytes % (A) 16.9 %; MCH 31.2 pg (27.0-32.0); MCHC 34.6 g/dL (32.0-37.0); MCV 90.2 fL (80.0-97.0); Monocytes # (A) 0.68 10*3/uL (0.20-1.00); Monocytes % (A) 6.6 %; Neutrophils # (A) 7.74 10*3/uL (1.80-7.70); Neutrophils % (A) 74.5 %; Platelet Count 338 10*3/uL (140-440); RBC 4.58 10*6/uL (4.10-5.20); RDW 11.7 % (11.5-14.5); WBC 10.37 10*3/uL (4.50-10.00)
[2025-04-17 02:46] LABS: ALT 85 U/L (4-34); AST 60 U/L (14-36); African American GFR (CKD) >90 (>60 ml/min/1.73 sqM); Albumin 4.9 g/dL (3.5-5.0); Alkaline Phosphatase 103 U/L (38-126); Amylase 106 U/L (30-110); Anion Gap 13 mmol/L; Blood Urea Nitrogen 24 mg/dL (7-17); Calcium 10.5 mg/dL (8.4-10.2); Carbon Dioxide 25 mmol/L (22-30); Chloride 99 mmol/L (98-107); Glucose 121 mg/dL (74-99); Lipase 218 U/L (23-300); Non-African American GFR(CKD) >90 (>60 ml/min/1.73 sqM); Potassium 4.7 mmol/L (3.5-5.1); Sodium 137 mmol/L (137-145); Total Protein 7.4 g/dL (6.3-8.2)
--- NOTE | 2025-04-17 02:48 | XR ---
EXAM: XR Abdomen, AP upright View CLINICAL HISTORY: PT presents with nausea, vomiting, abdominal pain started 3 hours ago. TECHNIQUE: AP upright view of the abdomen/pelvis. COMPARISON: No relevant prior studies available. FINDINGS: Gastrointestinal tract: Nonspecific bowel gas pattern. Moderate amount of stool in the colon. No dilation. No free air under diaphragm. Bones/joints: No fracture or dislocation. IMPRESSION: Moderate amount of stool in the colon.
[2025-04-17 04:31] VITALS: BP 109/96; PULSE 73; RESP 18
== END 2025-04-17 04:43 | disposition home or self-care (01) ==
LOC: EC 00:59
DX: R11.2 Nausea with vomiting, unspecified (principal); E66.9 Obesity, unspecified; Z98.84 Bariatric surgery status; Z68.32 Body mass index [BMI] 32.0-32.9, adult; Z87.891 Personal history of nicotine dependence
CPT/HCPCS: 36415; 74018; 80053; 82150; 83690; 84484; 85025; 93005; 99284

== ENCOUNTER → 2025-05-07 | Outpatient (CLI) | payer OTHER ==
[2025-05-07 10:51] VITALS: BP 116/80; PULSE 83; RESP 16; TEMP 98.1; BMI 31.3
--- NOTE | 2025-05-07 12:00 | P.HPBAR ---
Bariatric H&P - History & Physicial H&P Date: 05/07/25 History & Physicial: Visit/CC: f/u Patient initial contact: Initial weight: 130.181 kg Initial weight in pounds: 287.00 Height: 5 ft 6.5 in Initial BMI: 45.6 Last weight: Current weight: 89.358 kg Current weight in pounds: 197.00 Current BMI: 31.3 [place] body weight (based on NIH guidelines): 60.45 kg Excess body weight loss: 58.5% The patient is a 50 year-old F who presents for Bariatric Assessment. Patient presents today for bariatric follow-up. She has had some complaints of gerd. Her weight is remained stable. Past Medical History Past Medical History: Diabetes Mellitus, GERD/Reflux, Hyperlipidemia, Hypertension, Thyroid Disorder Additional Past Medical History / Comment(s): Pulmonary hypertension. No problems since 2019 with acid reflux. History of Any Multi-Drug Resistant Organisms: None Reported Past Surgical History: Bariatric Surgery, Section, Cholecystectomy, Tonsillectomy Additional Past Surgical History / Comment(s): Section X2. Gastric sleeve 11/16/22 Past Anesthesia/Blood Transfusion Reactions: No Reported Reaction Past Psychological History: ADD/ADHD, Depression, Panic Disorder Additional Psychological History / Comment(s): Hx of panic attacks. Smoking Status: Former smoker Past Alcohol Use History: None Reported Additional Past Alcohol Use History / Comment(s): Quit smoking in 2002. Past Drug Use History: None Reported - Past Family History Mother Family Medical History: Cancer Additional Family Medical History / Comment(s): Ovarian, uterine cancer. Father Family Medical History: CVA/TIA, Diabetes Mellitus, Hypertension Surgical - Exam Vital Signs Temp Pulse Resp BP 98.1 F 83 16 116/80 05/07/25 10:40 05/07/25 10:40 05/07/25 10:40 05/07/25 10:40 - General well developed, well nourished, no distress - Eyes PERRL - ENT normal pinna - Neck no masses - Respiratory normal expansion - Cardiovascular Rhythm: regular - Abdomen Abdomen: soft, non tender Bariatric Assessment & Plan Plan: Patient's GERD is minimal but 0. She will follow-up in 12 weeks. Bariatric Checklist Checklist: Plan: Checklist: EGD: 1. Hiatal hernia: 2. H. Pylori: HgbA1c: Vitamin D: Smoking: Former smoker Primary care physician referral: [facility] Psychiatry clearance: Cardiology clearance: Sleep study: Diet journal: VTE risk score: VTE risk level: Rehab needs at discharge:
[2025-05-07 15:32] LABS: HCT 41.2 % (37.2-46.3); HGB 13.6 g/dL (12.0-15.0); MCH 30.5 pg (27.0-32.0); MCHC 33.0 g/dL (32.0-37.0); MCV 92.4 FL (80.0-97.0); NRBC Per 100 WBC 0 X 10*3/uL (0.00-0.01); Platelet Count 308 X 10*3/uL (140-440); RBC 4.46 X 10*6/uL (4.10-5.20); RDW 11.9 % (11.5-14.5); WBC 4.63 X 10*3/uL (4.50-10.00)
[2025-05-07 16:04] LABS: ALT 75 U/L (8-44); AST 49 U/L (13-35); Albumin 4.4 g/dL (3.8-4.9); Albumin/Globulin Ratio 1.91 Ratio (1.60-3.17); Alkaline Phosphatase 102 U/L (41-126); Anion Gap 11.80 mmol/L (4.00-12.00); BUN/Creat Ratio 26.50 Ratio (12.00-20.00); Blood Urea Nitrogen 21.2 mg/dL (9.0-27.0); Calcium 9.7 mg/dL (8.7-10.3); Carbon Dioxide 24.2 mmol/L (21.6-31.8); Chloride 103 mmol/L (96-109); Ferritin 17.7 ng/mL (10.0-291.0); Globulin 2.3 g/dL (1.6-3.3); Glucose 96 mg/dL (70-110); Iron 66 UG/DL (50-170); Magnesium 2.2 mg/dL (1.5-2.4); Potassium 5.1 mmol/L (3.5-5.5); Sodium 139 mmol/L (135-145); Total Iron Binding Capacity 535 UG/DL (228-460); Total Protein 6.7 g/dL (6.2-8.2); Vitamin B12 549.0 pg/mL (200.0-944.0)
[2025-05-08 11:37] LABS: Zinc, Serum 79 ug/dL (60-130)
== END ==
LOC: BARWHC3 10:05
PROVIDERS: ATTEND Surgery
DX: E66.01 Morbid (severe) obesity due to excess calories (principal); E44.0 Moderate protein-calorie malnutrition; D50.8 Other iron deficiency anemias; T56.894A Toxic effect of other metals, undetermined, initial encounter; E55.9 Vitamin D deficiency, unspecified; Z68.31 Body mass index [BMI] 31.0-31.9, adult; Z87.891 Personal history of nicotine dependence
CPT/HCPCS: 84255; 84425; 80053; 82607; 82728; 82746; 83540; 83550; 83735; 84443; 84590; 84630; 85027; 82306; G0463; 99211